=== PATIENT | female | born 1995 | race Caucasian/White ===

== ENCOUNTER 2020-01-22 10:24 | Outpatient (CLI) | payer OTHER, SELFPAY ==
--- NOTE | ~2020-01-22 | US_ITS ---
EXAMINATION: US OB <=14 wk fetus w TV DATE: 01/22/2020 13:11 INDICATION: First trimester dating TECHNIQUE: Real-time pelvic transabdominal and transvaginal ultrasound was performed. COMPARISON: None. FINDINGS: There is a single intrauterine . The placenta is anterior. heart motion is i dentified measuring 145 beats per minute (bpm) by M-mode Doppler. The crown rump length measure s 9.7 cm , which correlates with an estimated gestational age of 15 weeks and 4 day(s) (+/-) 10 day(s ). The right ovary measures 2.3 x 1.0 x 2.5 cm. The left ovary measures 1.3 x 2.0 x 1.2 cm. There is nor mal vascular flow in the ovaries. There is no free fluid in the pelvis. IMPRESSION: 1. Live intrauterine with an estimated gestational age of 15 weeks and 4 day(s) (+/-) 10 da y(s) and an estimated delivery date of 07/11/2020. Reviewed, dictated and finalized at location A. IMPRESSION: 1. Live intrauterine with an estimated gestational age of 15 weeks an d 4 day(s) (+/-) 10 day(s) and an estimated delivery date of 07/11/2020.
== END 2020-01-22 10:25 | disposition home or self-care (01) ==
PROVIDERS: PCP Internal Medicine; Visit Provider Obstetrics & Gynecology
DX: Z34.91 Encounter for supervision of normal pregnancy, unspecified, first trimester (principal); Z3A.15 15 weeks gestation of pregnancy
CPT/HCPCS: 76801; 76817

== ENCOUNTER 2020-06-18 09:00 | Observation (INO) | payer OTHER, SELFPAY ==
--- NOTE | ~2020-06-18 | US_ITS ---
EXAMINATION: US OB limited w BPP EXAM DATE: 06/18/2020 10:44 INDICATION: Small for gestational age. decelerations. 3rd trimester. TECHNIQUE: Pelvic obstetrical transabdominal sonogram was performed by a technologist. There are mu ltiple grayscale and Doppler images available for interpretation. Comparison is made to prior examina tion from 01/22/2020. FINDINGS: There is a single fetus identified in vertex presentation with a heart rate of 155 beats pe r minute. The placenta is located in the anterior position. There is no sonographic evidence of retr oplacental hemorrhage identified. The amniotic fluid index is 15.0 centimeters, which is normal. BIOPHYSICAL PROFILE (performed by the technologist) breathing (30 sec sustained breathing in 30 minutes): 2 out of 2 movement (3 gross body movements in 30 minutes): 2 out of 2 tone (one episode of hnsmtjo-giktvrxfd-kfdyohy limb movement): 2 out of 2 Amniotic fluid pocket (2 cm): 2 out of 2 Total score: 8 out of 8 IMPRESSION: 1. Single fetus with heart rate of 155 bpm. 2. Normal biophysical profile score of 8 out of 8. Reviewed, dictated and finalized at location B. [employer]
--- NOTE | 2020-06-18 09:30 | OBADM ---
This patient, Rosaura Bradley, admitted to the OB room Labor/Delivery/Recovery 118 for observation. Patient/family oriented to hospital policies and general routines including ID bracelet, bed and alarms, visiting hours, pain management, procedures, bathroom and other care routines, personal items, smoking policy, room service/diet, and visiting hours. Patient/Family are encouraged to report perceived risks to care and to ask questions if they do not understand what they are told or what they should do.
--- NOTE | 2020-06-18 12:18 | PC.NURSE ---
Dr Serrano notified about tracing, reviewed in office and want to cont monitoring at this time.
--- NOTE | 2020-07-05 11:45 | PM.OBTRLD ---
OB - Triage/Final Diagnosis Final Diagnosis (1) heart deceleration: Status: Acute
--- NOTE | 2020-07-16 10:08 | PM.OBTRLD ---
OB - Triage/Final Diagnosis Visit Information Date of evaluation: 06/22/20 Reason for evaluation: other Comments/Additional reasons for admission: decelerations.
== END 2020-06-18 14:45 | disposition home or self-care (01) ==
LOC: ANHOBOP 13:10 → ANHLDR 13:10
PROVIDERS: Admitting Provider Obstetrics & Gynecology; PCP Internal Medicine; Visit Provider Obstetrics & Gynecology
DX: O36.8330 Maternal care for abnormalities of the fetal heart rate or rhythm, third trimester, not applicable or unspecified (principal); Z3A.36 36 weeks gestation of pregnancy
CPT/HCPCS: 76815; 76819; G0378; G0379

== ENCOUNTER 2020-06-20 07:28 | Outpatient (RCR) | payer OTHER, SELFPAY ==
[2020-04-27] MEDS: RHO(D) IMMUNE GLOBULIN 300 MCG SYRINGE IM (08:05)
--- NOTE | ~2020-06-20 | US_ITS ---
EXAMINATION: US OB BPP wo non-stress EXAM DATE: 06/20/2020 09:10 INDICATION: Small for gestational age. 3rd trimester. TECHNIQUE: Pelvic obstetrical transabdominal sonogram was performed by a technologist. There are mu ltiple grayscale and Doppler images available for interpretation. Comparison is made to prior examina tion from 06/18/2020. FINDINGS: There is a single fetus identified in vertex presentation with a heart rate of 152 beats pe r minute. The placenta is located in the anterior position. There is no sonographic evidence of retr oplacental hemorrhage identified. There is subjectively expected amount of amniotic fluid. BIOPHYSICAL PROFILE (performed by the technologist) breathing (30 sec sustained breathing in 30 minutes): 2 out of 2 movement (3 gross body movements in 30 minutes): 2 out of 2 tone (one episode of obudyvh-wpriafztt-nxsxmlk limb movement): 2 out of 2 Amniotic fluid pocket (2 cm): 2 out of 2 Total score: 8 out of 8 IMPRESSION: 1. Single fetus with heart rate of 152 bpm. 2. Normal biophysical profile score of 8 out of 8. Reviewed, dictated and finalized at location B. 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
== END 2020-06-20 11:30 | disposition home or self-care (01) ==
LOC: ANHOBOP 07:28
PROVIDERS: PCP Internal Medicine; Visit Provider Obstetrics & Gynecology
DX: Z29.13 Encounter for prophylactic Rho(D) immune globulin (principal); O36.0990 Maternal care for other rhesus isoimmunization, unspecified trimester, not applicable or unspecified; Z3A.00 Weeks of gestation of pregnancy not specified
CPT/HCPCS: 36415; 59025; 76819; 85461; 90384; 96372; J2790

== ENCOUNTER 2020-06-22 10:23 | Outpatient (RCR) | payer OTHER, SELFPAY ==
--- NOTE | ~2020-06-22 | US_ITS ---
US OB limited DATE: 06/22/2020 11:07 INDICATION: Small for gestational age; determine RAVEN TECHNIQUE: Real-time imaging and Doppler analysis COMPARISON: 06/20/2020 obstetrical ultrasound with biophysical profile FINDINGS: Live cooley intrauterine gestation, fetus in vertex presentation. The placenta is anteri or. heart rate of 127 bpm. Amniotic fluid index measures 13.6 cm, normal. (5th percentile RAVEN: 7.5 cm; 95th percentile RAVEN: 24.4 cm.) IMPRESSION: Normal amniotic fluid index of 13.6 cm Reviewed, dictated and finalized at Location A. Reviewed, dictated and finalized at location A. 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
[2020-06-22 10:55] VITALS: BP 121/79; PULSE 103
--- NOTE | 2020-06-22 11:35 | PC.NURSE ---
1134- Spoke with Dr. Day, RAVEN 13.6, has appointment scheduled for next week. May be dc to home.
== END 2020-07-02 07:54 | disposition home or self-care (01) ==
LOC: ANHOBOP 10:23
PROVIDERS: PCP Internal Medicine; Visit Provider Obstetrics & Gynecology
DX: O36.5930 Maternal care for other known or suspected poor fetal growth, third trimester, not applicable or unspecified (principal); Z3A.37 37 weeks gestation of pregnancy
CPT/HCPCS: 59025; 76815

== ENCOUNTER 2020-06-28 00:14 | Inpatient (IN) | payer OTHER, SELFPAY ==
[2020-06-28] VITALS (57 sets, daily range): BP systolic 107–146; BP diastolic 62–96; PULSE 85–142; TEMP 36.3–36.7; O2SAT 97–100; BMI 28.2
--- NOTE | 2020-06-28 00:14 | LDADM ---
This patient, Rosaura Bradley, was admitted to Labor/Delivery/Recovery 104 on 06/28/20 at 00:14. Plans for labor, pain management and were discussed with patient. Patient/family oriented to hospital policies and general routines including ID bracelet, bed and alarms, visiting hours, pain management, procedures, bathroom and other care routines, personal items, smoking policy, room service/diet and guest tray routines, security routines, and visiting hours. Patient/Family are encouraged to report perceived risks to care and to ask questions if they do not understand what they are told or what they should do. See OBIX for further documentation.
[2020-06-28 00:52] LABS: Basophils Percent Auto 0.3 % (0.2-1.2); Eosinophils Absolute Auto 0.1 K/mm3 (0-0.3); Eosinophils Percent Auto 0.8 % (0-4.4); Hematocrit 33.6 % (37.0-47.0); Hemoglobin 11.7 g/dL (12.0-15.0); Immature Granulocyte Absolute 0.08 K/mm3 (0.00-0.031); Immature Granulocyte Percent A 0.6 % (0-0.5); Lymphocytes Absolute Auto 2.53 K/mm3 (0.9-3.2); Lymphocytes Percent Auto 19.1 % (18.3-44.2); Mean Corpuscular HGB Conc 34.8 g/dl (32-36); Mean Corpuscular Hemoglobin 29.9 pg (26-34); Mean Corpuscular Volume 85.9 fl (80-100); Mean Platelet Volume 9.8 fl (7.4-10.4); Monocytes Absolute Auto 0.9 K/mm3 (0.1-0.6); Neutrophils Absolute Auto 9.6 K/mm3 (1.3-6.7); Neutrophils Percent Auto 72.2 % (45.5-73.1); Platelet Count Result 268 k/mm3 (150-375); Red Blood Count 3.91 M/mm3 (4.2-5.4); Red Cell Distribution Width 13.8 % (11.5-14.5); White Blood Count 13.2 K/mm3 (4.5-10.0)
[2020-06-28] MEDS: DINOPROSTONE 10 MG VAG INSERT VAGINAL (01:30)
--- NOTE | 2020-06-28 06:57 | WPDANESEPP ---
Anes - Eval Pre Procedure Procedure: Labor epidural Date/Time: 06/28/20 06:57 Surgeon: Maggie Preop Diagnosis: pain during labor Pre Op Diagnosis: IOL Patient Data Age: 24 Gender: F Height: 1.57 m Weight: 70 kg Last Vital Signs Temp 36.4 C 06/28/20 03:42 Pulse 92 06/28/20 06:00 BP 127/76 06/28/20 06:00 Pulse Ox 99 06/28/20 01:23 Allergies Allergy/AdvReac Type Severity Reaction Status Date / Time Penicillins Allergy Unknown Verified 06/27/20 09:03 Home Medications Medication Instructions Recorded Confirmed Type vitamins no.85-iron 10 1 cap PO DAILY #30 cap 12/15/19 06/28/20 Rx mg-folate no.1 1 mg-dha 200 mg capsule ferrous sulfate 325 mg (65 mg 325 mg PO DAILY #30 tablet 06/06/20 06/28/20 Rx iron) tablet Laboratory Tests 06/28/20 06/28/20 06/28/20 00:45 00:45 01:28 WBC 13.2 K/mm3 H K/mm3 (4.5-10.0) RBC 3.91 M/mm3 L M/mm3 (4.2-5.4) Hgb 11.7 g/dL L g/dL (12.0-15.0) Hct 33.6 % L % (37.0-47.0) MCV 85.9 fl fl (80-100) MCH 29.9 pg pg (26-34) MCHC 34.8 g/dl g/dl (32-36) RDW 13.8 % % (11.5-14.5) Plt Count 268 k/mm3 k/mm3 (150-375) MPV 9.8 fl fl (7.4-10.4) Immature Gran % (Auto) 0.6 % H % (0-0.5) Neut % (Auto) 72.2 % % (45.5-73.1) Lymph % (Auto) 19.1 % % (18.3-44.2) [place] % (Auto) 7.0 % % (2.6-8.5) Eos % (Auto) 0.8 % % (0-4.4) Baso % (Auto) 0.3 % % (0.2-1.2) Lymph # (Auto) 2.53 K/mm3 K/mm3 (0.9-3.2) [place] # (Auto) 0.9 K/mm3 H K/mm3 (0.1-0.6) Eos # (Auto) 0.1 K/mm3 K/mm3 (0-0.3) Baso # (Auto) 0.0 K/mm3 K/mm3 (0.0-0.1) Abs Immat Gran (auto) 0.08 K/mm3 H K/mm3 (0.00-0.031) Absolute Neuts (auto) 9.6 K/mm3 H K/mm3 (1.3-6.7) Absolute Nucleated RBC 0.0 K/mm3 K/mm3 (0.0-0.012) Nucleated RBC % 0.0 % % (0.0-0.2) RPR Pending Blood Type A Negative Antibody Screen Positive Antibody Identification Passive Due to RH Imm Glob Antigen Identification Cancelled JIMMIE, IgG Interpret Not Performed JIMMIE, Poly Interpret Negative JIMMIE, Complement Interp Not Performed Patient hx anesthesia problems: none Family hx anesthesia problems: none PMFSH Surgical History Surgical History History of appendectomy Family History Family History Grandparent Diabetes mellitus Breast cancer Social History Social History Years smoked: 4 Smoking status: Never smoker Alcohol intake: never Substance use: never Spiritual care concerns: No Exam Day of Procedure 06/28/20 06:57
[2020-06-28 07:46] LABS: Rapid Plasma Reagin Non-Reactive (NonReactive)
[2020-06-28] MEDS: LACTATED RINGERS 1,000 ML 125 ML IV CONT ×2 (14:32→17:28)
[2020-06-28] MEDS: TERBUTALINE SULFATE 1 MG/ML VIAL (14:34)
--- NOTE | 2020-06-28 16:40 | PM.IMHP ---
H&P: HPI History of Present Illness Date/Time: 06/28/20 16:40 Chief complaint: IOL Narrative: Rosaura Bradley is a 24 year old female at 38 weeks by an EDC of 07/11/20 established by a 15 week ultrasound which was not consistent with her LMP. PNC significant for IUGR. She has been followed with serial ultrasounds and surveillance. The surveillance has been reassuring. She did have an episode of spontaneous variables on tracing and reassuring prolonged monitoring. Her last ultrasound showed an EFW of 3% which was 5% two weeks prior. She was recommended by [facility] for induction of labor between 38 and 39 weeks. Discussed risk benefits of induction versus expectant management. 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 FOC did not get lab tested. She also has anemia of and has been on iron supplementation along with PNV. Labs reviewed. GBS neg. Review of Systems Review of Systems: All systems reviewed & are unremarkable except as noted in HPI and below Constitutional: Constitutional: Reports no additional constitutional complaints and Denies headache(s) Eyes: Eyes: Denies spots in vision ENT: Reports system reviewed and no additional complaints, except as documented and Denies headache(s) Cardiovascular: Cardiovascular: Denies chest pain and Denies dyspnea Respiratory: Respiratory: Denies dyspnea Gastrointestinal: Gastrointestinal: Reports no additional gastrointestinal complaints Genitourinary: Genitourinary: Reports amenorrhea Musculoskeletal: Musculoskeletal: Reports no additional musculoskeletal complaints Integumentary/Breasts: Skin/Breast: Denies breast mass and Denies rash Neurologic: Denies headache(s) Psychiatric: Psychiatric: Reports no additional psychiatric complaints [facility] Surgical History Surgical History History of appendectomy Family History Family History Grandparent Diabetes mellitus Breast cancer Social History Social History Years smoked: 4 Smoking status: Never smoker Alcohol intake: never Substance use: never Spiritual care concerns: No Meds Home Medications and Allergies Home Medications Medication Instructions Recorded Confirmed Type vitamins no.85-iron 10 1 cap PO DAILY #30 cap 12/15/19 06/28/20 Rx mg-folate no.1 1 mg-dha 200 mg capsule ferrous sulfate 325 mg (65 mg 325 mg PO DAILY #30 tablet 06/06/20 06/28/20 Rx iron) tablet Allergies Allergy/AdvReac Type Severity Reaction Status Date / Time Penicillins Allergy Unknown Verified 06/27/20 09:03 Vital Signs Vital Signs - 24 hr 06/28/20 00:44 06/28/20 00:49 06/28/20 00:54 Temperature Pulse Rate Blood Pressure Pulse Oximetry 97 97 97 06/28/20 00:59 06/28/20 01:04 06/28/20 01:08 Temperature 97.9 F Pulse Rate Blood Pressure Pulse Oximetry 97 99 99 06/28/20 01:12 06/28/20 01:13 06/28/20 01:15 Temperature Pulse Rate 129 H 113 H Blood Pressure 129/94 H 130/88 Pulse Oximetry 98 06/28/20 01:18 06/28/20 01:23 06/28/20 01:30 Temperature Pulse Rate 104 H Blood Pressure 124/92 H Pulse Oximetry 99 99 06/28/20 01:45 06/28/20 02:00 06/28/20 02:15 Temperature Pulse Rate 99 98 90 Blood Pressure 125/90 128/86 132/83 Pulse Oximetry 06/28/20 02:30 06/28/20 02:45 06/28/20 03:00 Temperature Pulse Rate 90 95 92 Blood Pressure 133/79 122/79 134/83 Pulse Oximetry 06/28/20 03:15 06/28/20 03:30 06/28/20 03:42 Temperature 97.6 F Pulse Rate 90 96 Blood Pressure 130/83 140/82 Pulse Oximetry 06/28/20 03:45 06/28/20 04:00 06/28/20 04:15 Temperature Pulse Rate 102 H 100 85 Blood Pressure 116/69 111/65 111/71 Pulse Oximetry 06/28/20 04:30 06/28/20 04:45 06/28/20 05:00 Temperature Pulse Rate 86 90 86 Blood Pressure 1
--- NOTE | 2020-06-28 16:58 | P.PNOB_ITS ---
OB - PN: Subj Subjective Date/time seen: 06/28/20 o830 FHT 140 Cat 1. Cervix closed. Continue cervidil. OB - PN: Obj Data Labs CBC & Chem 7: 06/28/20 00:45 Labs: Laboratory Results - last 24 hr 06/28/20 06/28/20 06/28/20 00:45 01:27 01:28 WBC 13.2 H RBC 3.91 L Hgb 11.7 L Hct 33.6 L MCV 85.9 MCH 29.9 MCHC 34.8 RDW 13.8 Plt Count 268 MPV 9.8 Immature Gran % (Auto) 0.6 H Neut % (Auto) 72.2 Lymph % (Auto) 19.1 [place] % (Auto) 7.0 Eos % (Auto) 0.8 Baso % (Auto) 0.3 Lymph # (Auto) 2.53 [place] # (Auto) 0.9 H Eos # (Auto) 0.1 Baso # (Auto) 0.0 Abs Immat Gran (auto) 0.08 H Absolute Neuts (auto) 9.6 H Absolute Nucleated RBC 0.0 Nucleated RBC % 0.0 RPR Non-reactive Blood Type A Negative Antibody Screen Positive Antibody Identification Passive Due to RH Imm Glob Antigen Identification Cancelled JIMMIE, IgG Interpret Not Performed JIMMIE, Poly Interpret Negative JIMMIE, Complement Interp Not Performed OB - PN A/P Time Spent With Patient Time: Total time spent is greater than 50% in coordination of care (as documented) at patient's floor/unit and/or counseling patient:
--- NOTE | 2020-06-28 16:58 | P.PNOB_ITS ---
OB - PN: Subj Subjective Date/time seen: 06/28/20 16:58 Tracing reviewed. Tracing with an episode of tachysystole and bradycardia resolved. Terbutaline given. Prior to that Cat 1. Cervidil was taken prior to the episode of tachysystole. Contraction mild irreg, FHT 150 cat 1. Exam /-3, Attempted intracervical Bautista placement and patient did not tolerate. Will start back on Pitocin. OB - PN: Obj Data Labs CBC & Chem 7: 06/28/20 00:45 Labs: Laboratory Results - last 24 hr 06/28/20 06/28/20 06/28/20 00:45 01:27 01:28 WBC 13.2 H RBC 3.91 L Hgb 11.7 L Hct 33.6 L MCV 85.9 MCH 29.9 MCHC 34.8 RDW 13.8 Plt Count 268 MPV 9.8 Immature Gran % (Auto) 0.6 H Neut % (Auto) 72.2 Lymph % (Auto) 19.1 [place] % (Auto) 7.0 Eos % (Auto) 0.8 Baso % (Auto) 0.3 Lymph # (Auto) 2.53 [place] # (Auto) 0.9 H Eos # (Auto) 0.1 Baso # (Auto) 0.0 Abs Immat Gran (auto) 0.08 H Absolute Neuts (auto) 9.6 H Absolute Nucleated RBC 0.0 Nucleated RBC % 0.0 RPR Non-reactive Blood Type A Negative Antibody Screen Positive Antibody Identification Passive Due to RH Imm Glob Antigen Identification Cancelled JIMMIE, IgG Interpret Not Performed JIMMIE, Poly Interpret Negative JIMMIE, Complement Interp Not Performed OB - PN A/P Time Spent With Patient Time: Total time spent is greater than 50% in coordination of care (as documented) at patient's floor/unit and/or counseling patient:
[2020-06-28] MEDS: OXYTOCIN 30 UNITS/NS 500 ML 30 UNITS/500 ML BAG IV CONT (17:28)
[2020-06-29] VITALS (70 sets, daily range): BP systolic 62–223; BP diastolic 29–190; PULSE 85–241; RESP 16–18; TEMP 36.4–37.2; O2SAT 99
[2020-06-29] MEDS: LACTATED RINGERS 1,000 ML 125 ML IV CONT ×2 (04:45→15:32)
--- NOTE | 2020-06-29 09:37 | PM.OBPNVD ---
OB - PN: Subj Subjective Date/time seen: 06/29/20 09:37 FHT 145 Cat 1 occasional decel episode non repetitive. cervix /-2 AROM clear. Continue Pitocin. OB - PN: Obj Data Labs CBC & Chem 7: 06/28/20 00:45 OB - PN A/P Time Spent With Patient Time: Total time spent is greater than 50% in coordination of care (as documented) at patient's floor/unit and/or counseling patient:
[2020-06-29] MEDS: fentaNYL CITRATE INJ (*CRX) 100 MCG/2 ML VIAL IV PUSH (12:00)
[2020-06-29] MEDS: OXYTOCIN 30 UNITS/NS 500 ML 30 UNITS/500 ML BAG 999 UNITS IV CONT (16:37)
--- NOTE | 2020-06-29 16:41 | P.PCNOB_ITS ---
OB - Delivery Note Procedure Delivery date: 06/29/20 events: Labor Induction (IUGR) Intrapartal events: Prolonged Latent Phase Induction method: AROM, per pitocin protocol and per cervidil protocol Delivery monitor: external FHT and internal uterine Route of delivery: Episiotomy description: None Laceration Description: Periurethral (left) Delivery repair: vicryl (3-0) Specimen: Yes Quantitative Blood Loss: 112 Anesthesia type: Local (1% lidocaine) Disposition: floor [place] Baby Date of : 06/29/20 Time of : 16:21 Weeks of gestation at delivery: 38 gender: Female Weight (pounds): 5 Weight (ounces): 12 presentation: vertex position: Left Occiput Anterior Placenta delivery description: Spontaneous score one minute: 9 score five minutes: 9
[2020-06-29] MEDS: OXYTOCIN 30 UNITS/NS 500 ML 30 UNITS/500 ML BAG 125 UNITS IV CONT (17:10)
[2020-06-29] MEDS: WITCH HAZEL 40 PADS 1 PAD TOPICAL (18:44)
[2020-06-29] MEDS: BENZOCAINE 20% AER SPR (*SP) 56 GM CAN 1 SPRAY TOPICAL (18:44)
--- NOTE | 2020-06-29 19:07 | PC.NURSE ---
Patient transferred to post room #281 via wheel chair. Support person present. Oriented to unit, room, information board, rooming in, admission packet and security measures. Patient verbalizes understanding.
[2020-06-29] MEDS: IBUPROFEN 600 MG TABLET PO (21:47)
[2020-06-30 05:53] LABS: Hematocrit 32.6 % (37.0-47.0); Hemoglobin 11.1 g/dL (12.0-15.0)
[2020-06-30] MEDS: IBUPROFEN 600 MG TABLET PO ×2 (09:21→16:20)
[2020-06-30] MEDS: MULTIVIT/MIN/PREN/FOL AC/IRON TABLET 1 TAB PO (09:22)
[2020-06-30] MEDS: DOCUSATE SODIUM 100 MG CAPSULE PO (09:22)
[2020-06-30 09:30] VITALS: BP 114/76; PULSE 89; RESP 16; TEMP 36.9
--- NOTE | 2020-06-30 12:29 | P.PNOB_ITS ---
OB - PN: Subj Subjective Date/time seen: 06/30/20 12:29 Patient comments: no complaints, pain well controlled and other (Lochia similar to menses) [place] baby status: doing well OB - PN: Obj Data Labs CBC & Chem 7: 06/30/20 05:44 Labs: Laboratory Results - last 24 hr 06/30/20 06/30/20 05:44 05:44 Hgb 11.1 L Hct 32.6 L Blood Type A Negative Antibody Screen TNP Screen Negative Baby's Blood Type A pos Baby's JIMMIE Negative Doses of RhIg Required 1 OB - PN A/P Plan day: 1 (s/p vaginal delivery, doing well) Plan: routine care Time Spent With Patient Time: Total time spent is greater than 50% in coordination of care (as documented) at patient's floor/unit and/or counseling patient: Exam Const: General: no acute distress GI: Inspection: other (Fundus firm and nontender at umbilicus) GI Palp: Yes Soft to palpation and No Tenderness to palpation present (GI) Extrem: General: no edema
--- NOTE | 2020-06-30 12:29 | PM.OBDSVD ---
DS: Admitting Diagnosis Admitting Diagnosis Admitting Diagnosis: IOL DS: Discharge Diagnosis Discharge Diagnosis (1) Intrauterine growth restriction (IUGR) affecting care of mother, third trimester, single gestation: Code(s): O36.5930 - Maternal care for other known or suspected poor growth, third trimester, not applicable or unspecified Status: Acute OB - DS: Summary OB Procedures : None OB Procedures Intrapartum: Spontaneous Vag Delivery OB Procedures: : None Peripartum Data Infant Delivery Method: Natural Vaginal Laceration Description: Periurethral complications: none Status at Discharge Functional status at discharge: independent ambulation Overall status at discharge: patient is progressing back to baseline Time Spent with Patient Time attestation: Total time spent providing and/or coordinating discharge services: Time spent: Less than 30 minutes DS: Data Data Completed and Pending Pending studies at discharge: Pending at discharge 06/29/20 16:26 Surgical [PTH] Routine Labs on day of discharge: Labs from last 24 hours 06/30/20 06/30/20 05:44 05:44 Hgb 11.1 L Hct 32.6 L Blood Type A Negative Antibody Screen TNP Screen Negative Baby's Blood Type A pos Baby's JIMMIE Negative Doses of RhIg Required 1 Discharge Plan Discharge Attending physician on discharge: Silvio Serrano Discharging Clinician: Devika May Anticipated Discharge Date/Time: 07/01/20 11:00 Patient Disposition: Home, Self-Care Activity: may shower and pelvic rest Diet: regular Discharge Instructions: Education: Mom and Baby Guide Given to: Mother Follow-Up: Call your delivering provider's office for an appointment to be seen in: 4 Weeks Mom and baby should come to the [facility] for the follow-up appointment. Appointment Date/Time: July 02, 2020 at 8:00 am What to expect at your follow-up visit: Physical Assessment Call [phone] if you are unable to keep your appointment time. BREAST CARE: * Wear a snug supportive bra. * For engorgement discomfort: Breast Feeding: * Apply warm moist washcloths * Express milk as needed to relieve engorgement * Wear loose clothing * For sore nipples: * Identify correct latch-on * Apply warm moist washcloths before and after nursing * Air dry nipples after nursing * May apply Lansinoh cream to nipples PERINEAL CARE: * Until bleeding stops, use your sacha bottle after urinating * Change your pad frequently throughout the day * You may take sitz baths several times a day (fill your bathtub with warm water and soak for 20 minutes.) Do NOT bathe in the water * No tub baths until seen by your physician - You may shower ACTIVITY: * Rest as much as possible. * Do not exercise or lift anything heavier than your baby (such as laundry or other children.) * Avoid stairs or driving as much as possible. * Do not put anything into the vagina. No douching, tampons, or sexual activity until seen by physician. NOTIFY PHYSICIAN IF YOU HAVE ANY QUESTIONS OR IF ANY OF THE FOLLOWING SYMPTOMS OCCUR: * If your stitches become red, swollen, or more painful than what you have experienced in the hospital. * If your vaginal bleeding becomes foul smelling. * If your vaginal bleeding becomes more heavy than a period or if your bleeding changes from pink to bright red. However, you may pass an occasional walnut-sized clot once or twice for the first week . * If you experience a sharp, shooting pain in you calves. * If you discover a hard, reddened area on your breast or if you experience flu-like symptoms. DIET: * Eat regular, well-balanced meals. * Drink plenty of fluids daily. If , drink to thirst. Patient Instructions: Antibiotic Form Stand Alone Forms: General Discharge Information Follow-up/Referrals: St
--- NOTE | 2020-06-30 13:16 | WPDANLDPN2 ---
Anes-Prog Note L&D Date/Time: 06/30/20 13:16 Comfortable throughout: labor and delivery Neuraxial method: epidural Epidural/Spinal procedure site: clean & non-tender Neuro status: Neuro function grossly intact. Cardiovascular status: normal Respiratory status: normal Airway patency: baseline Mental status: baseline Post-Op hydration status: normal Vital Signs: Last Vital Signs Temp 36.9 C 06/30/20 09:30 Pulse 89 06/30/20 09:30 Resp 16 06/30/20 09:30 BP 114/76 06/30/20 09:30 Pulse Ox 99 06/29/20 19:35 Pain score (VAS): 0 I/O: Intake & Output 06/29/20 06/30/20 06/30/20 23:59 07:59 15:59 Intake Total 1670 Output Total 85 Balance 1585 Post-procedural complaints: none Patient feedback: Patient satisfied with anesthetic care.
[2020-06-30] MEDS: TETANUS,DIPHTHERIA,AC PERTUSSIS ADULT (0.5 ML) BOOSTRIX IM (17:10)
[2020-06-30] MEDS: RHO(D) IMMUNE GLOBULIN 300 MCG SYRINGE IM (17:14)
[2020-06-30 18:22] VITALS: BP 118/81; RESP 16; TEMP 36.9
[2020-07-01 08:10] VITALS: BP 113/79; PULSE 97; RESP 18; TEMP 36.6
[2020-07-01] MEDS: MEASLES,MUMPS,RUBELLA VACCINE 0.5 ML VIAL (08:54)
[2020-07-01] MEDS: MULTIVIT/MIN/PREN/FOL AC/IRON TABLET 1 TAB PO (08:54)
--- NOTE | 2020-07-01 09:09 | PM.OBPNVD ---
OB - PN: Subj Subjective Date/time seen: 07/01/20 09:09 Patient comments: no complaints, pain well controlled and other (Lochia similar to menses) [place] baby status: doing well OB - PN: Obj Data Labs CBC & Chem 7: 06/30/20 05:44 Labs: Laboratory Results - last 24 hr 06/30/20 05:44 Blood Type A Negative Antibody Screen TNP Screen Negative Baby's Blood Type A pos Baby's JIMMIE Negative Doses of RhIg Required 1 OB - PN A/P Plan day: 2 (s/p vaginal delivery, doing well) Plan: routine care, discharge home and other (Follow up in office in 4 weeks) Time Spent With Patient Time: Total time spent is greater than 50% in coordination of care (as documented) at patient's floor/unit and/or counseling patient: Exam Const: General: no acute distress GI: Inspection: other (Fundus firm and nontender below umbilicus) GI Palp: Yes Soft to palpation and No Tenderness to palpation present (GI) Extrem: General: no edema
[2020-07-02 07:52] VITALS: BP 126/84; PULSE 100; RESP 20; TEMP 37.3; O2SAT 99
== END 2020-07-01 11:52 | disposition home or self-care (01) | DRG 560 ==
LOC: ANHLDR 00:19 → ANHOB2 06-30 12:32 → ANHLDR 07-04 11:20 → ANHOB2 07-04 11:20
PROVIDERS: Admitting Provider Obstetrics & Gynecology; PCP Internal Medicine; Visit Provider Obstetrics & Gynecology
DX: O36.5930 Maternal care for other known or suspected poor fetal growth, third trimester, not applicable or unspecified (principal); O71.82 Other specified trauma to perineum and vulva; O76 Abnormality in fetal heart rate and rhythm complicating labor and delivery; O99.02 Anemia complicating childbirth; D64.9 Anemia, unspecified; O99.834 Other infection carrier state complicating childbirth; Z3A.38 38 weeks gestation of pregnancy; Z37.0 Single live birth; Z22.8 Carrier of other infectious diseases; Z23 Encounter for immunization
CPT/HCPCS: 36415; 85014; 85018; 85025; 85461; 86592; 86850; 86880; 86900; 86901; 86902; 88307; 90384; 90471; 90653; 90710; 90715; A9270; G0008; J2590; J2790; J2795; J3010; J3105; J7120

== ENCOUNTER 2024-07-18 23:46 | Emergency (ER) | payer OTHER, SELFPAY ==
[2024-07-18 23:48] VITALS: BP 124/79; PULSE 121; RESP 18; TEMP 36.5; O2SAT 98
--- NOTE | 2024-07-19 02:13 | PC.NURSE ---
Pt states she has a kid at home that she needs to get back to. Pt states she is leaving. Pt left without being seen by provider.
--- OUTSIDE RECORDS SUMMARY | 2024-07-26 02:27 | XMS_ITS | Encounter Summary ---
Author Organization [facility] Address [address] [place] [address] Care Team Providers Care Drafter Heating And Ventilating Name Role Phone Unavailable Primary Care Provider Unavailabl e Reason for Referral * Radiology Services (Routine) - Closed Specialty Diagnoses / Procedures Referred By Contac t Referred To Contact Diagnoses Bycxx-zfo-fibqr fetus, third trimester Procedures US MONITORING NST US MONITORING NST Lazaro Maguire MD [address] [address] Referral ID Status Reason Start Date Expiration Date V isits Requested Visits Authorized [id number] Closed [facility] CTS 05/17/2020 06/17/2021 1 1 Reason for Visit * Radiology Services (Routine) - Closed Specialty Diagnoses / Procedures Referred By Contac t Referred To Contact Diagnoses Alrwu-myt-ilfnd fetus, third trimester Procedures US MONITORING NST US MONITORING NST Lazaro Maguire MD [address] [address] Referral ID Status Reason Start Date Expiration Date V isits Requested Visits Authorized [id number] Closed [facility] CTS 05/17/2020 06/17/2021 1 1 Encounter Details Date Type Department Care Team (Latest Contact Info) Description 05/24/2020 9:15 AM CDT - 05/24/2020 11:59 PM CDT Hospital Encounter [facility] Maternal and Health [facility] [address] [place] [address] Lazaro Maguire MD [address] [facility] [address] [place] [address] Discharge Disposition: Home or Self Care Social History Tobacco Use Types Packs/Day Years Used Date Smoking Tobacco: Never Assessed Sex and Gender Information Value Date Recorded Sex Assigned at Not on file Gender Identity Not on file Sexual Orientation Not on file COVID-19 Exposure Response Date Recorded In the last month, have you been in contact with someone who was confirmed or suspected to have Coronavirus / COVID-19? No / Unsure 05/24/2020 9:29 AM CDT documented as of this encounter Plan of Treatment Not on file documented as of this encounter Procedures Procedure Name Priority Date/Time Associated Diagnosis Comments US MONITORING NST Routine 05/24/2020 11:46 AM CDT Kvrnf-idr-rcbkf fetus, third trimester documented in this encounter Results * US MONITORING NST (05/24/2020 11:46 AM CDT) Anatomical Region Laterality Modality Ultrasound 05/24/2020 9:32 AM CDT Impressions 05/24/2020 11:39 AM CDT IMPRESSION ----- Here today for testing along with Doppler study secondary to suspected SGA/IUGR. Reassuring status with reactive NST with normal RAVEN 17.9 cm. The umbilical artery doppler studies were normal. Narrative 05/24/2020 11:[address] [facility] NST ----- Pat. Name: ROSAURA BRADLEY Study Date: 05/24/2020 9:32am Pat. NO: [id number] Referring ??MD: LAZARO MAGUIRE MD Site: [facility] [employer] Grader: : 1995 Age: 24 ----- INDICATION ----- Insufficient Care Small for Dates CODING ----- Diagnosis ? O09.33: Supervision of with insufficient care ?O36.5930: Maternal care for other known or suspected poor growth Unspecified Fetus ?Z3A.33: Weeks Gestation of Procedures ?41778: NST/ monitoring HISTORY ----- OB History ? 1. Para 0 MATERNAL ASSESSMENT ----- Physical Exam ? Weight 64 kg. BMI 25.61 kg/m?. Blood pressure 119 / 72 mmHg. Heart rate 108 bpm. METHOD ----- EFM ----- Goddard . Number of fetuses: 1. DATING ----- Cycle: regular cycle GA by stated dating 33 w + 1 d NICOLE by stated dating : 07/11/2020 Method of dating: Restore dating from previous exam Assigned: Dating performed on 03/28/2020, based on the external assessment Assigned GA 33 w + 1 d Assigned NICOLE: 07/11/2020 NON STRESS TEST ----- NST interpretation: reactive. Test duration 23 min. Baseline FHR 135 bpm. Baseline variability: moderate. Accelerations: Present. Decelerations: absent. Uterine activity: absent COMMENT ----- Nursing notes: Patient reports + movement and no bleeding, leaking or bob. Patient scheduled twice weekly. Pt to US now for BFS. FOLLOW-UP ----- As previously discussed she is to continue twice-weekly testing along with weekly Doppler studies and repeat interval growth ultrasound as previously scheduled. Based on surgical findings also determine timing of delivery. labor precautions along with kick counts. Thank you for allowing us to partake in your patient's care. Procedure Note Darryl Avilez DO - 05/24/2020 [facility] ----- Janis. Name:SIDNEY BRADLEYLorenzo Date:05/24/2020 9:32am Pat. NO: [id number] :LAZARO MAGUIRE MD Site:[facility]: :1995Age:24 ----- INDICATION ----- Insufficient Care Small for Dates CODING ----- Diagnosis O09.33: Supervision of with insufficientantenatal care O36.5930: Maternal care for other known orsuspected poor growth Unspecified Fetus Z3A.33: Weeks Gestation of Procedures 21676: NST/ monitoring HISTORY ----- OB History 1. Para 0 MATERNAL ASSESSMENT ----- Physical Exam Weight 64 kg. BMI 25.61 kg/m?. Blood posfghqe004 / 72 mmHg. Heart rate 108 bpm. METHOD ----- EFM ----- Goddard . Number of fetuses: 1. DATING ----- Cycle:regular cycle GA by stated dating 33 w + 1 d NICOLE by stated dating :07/11/2020 Method of dating:Restore dating from previous exam Assigned:Dating performed on 03/28/2020, based on the externalassessment Assigned GA33 w + 1 d Assigned NICOLE:07/11/2020 NON STRESS TEST ----- NST interpretation: reactive. Test duration 23 min. Baseline FHR 135 bpm.Baseline variability: moderate. Accelerations: Present. Decelerations: absent. Uterine activity: absent COMMENT ----- Nursing notes: Patient reports + movement and no bleeding, leakingor bob. Patient scheduled twice weekly. Pt to US now for BFS. FOLLOW-UP ----- As previously discussed she is to continue twice-weekly fetaltesting along with weekly Doppler studies and repeat interval growth ultrasound as previously scheduled. Based onsurgical findings also determine timing of delivery. labor precautions along with kick counts. Thank you for allowing us to partake in your patient's care. IMPRESSION ----- Here today for testing along with Doppler study secondaryto suspected SGA/IUGR. Reassuring status with reactive NST with normal RAVEN 17.9 cm. The umbilical artery doppler studies were normal. Lazaro Maggie MD ORDERABLES documented in this encounter Visit Diagnoses Diagnosis Nshrb-kpm-oqcny fetus, third trimester documented in this encounter
--- OUTSIDE RECORDS SUMMARY | 2024-07-26 02:27 | XMS_ITS | Encounter Summary ---
Author Organization [facility] Address [address] Attn: Epic Prelude ADT JANI EVANS SARAH [address] Care Team Providers Care Health Information Systems Technician Name Role Phone Unavailable Primary Care Provider Unavailabl e Encounter Details Date Type Department Care Team (Latest Contact Info) Description 06/18/2020 Travel Social History Tobacco Use Types Packs/Day Years [...] have Coronavirus / COVID-19? No / Unsure 06/18/2020 7:48 AM DINKEY OPERATOR SLAG documented as of this encounter Plan of Treatment Not on file documented as of this encounter Visit Diagnoses Not on filedocumented in this encounter
--- OUTSIDE RECORDS SUMMARY | 2024-07-26 02:27 | XMS_ITS | Encounter Summary ---
Author Organization [facility] Address [address] [place] [address] Care Team Providers Care Survey Researcher Name Role Phone Unavailable Primary Care Provider Unavailabl e Reason for Referral * Radiology Services (Routine) - Closed Specialty Diagnoses / Procedures Referred By Contac t Referred To Contact Diagnoses Ilgfs-kgi-zzjzq fetus, third trimester Procedures US OB LTD+UMB ART DOPPLER CHG DOPPLER UMBILICAL ARTERY CHG US, UTERUS,LIMITED, 1/> FETUSES Lazaro Maguire MD [address] [address] Referral ID Status Reason Start Date Expiration Date V isits Requested Visits Authorized [id number] Closed STL CTS 06/08/2020 09/16/2020 1 1 TRIC SWITCH TESTER Reason for Visit * Radiology Services (Routine) - Closed Specialty Diagnoses / Procedures Referred By Contac t Referred To Contact Diagnoses Emdkm-kei-wikjs fetus, third trimester Procedures US OB LTD+UMB ART DOPPLER CHG DOPPLER UMBILICAL ARTERY CHG US, UTERUS,LIMITED, 1/> FETUSES Lazaro Maguire MD [address] [address] Referral ID Status Reason Start Date Expiration Date V isits Requested Visits Authorized [id number] Closed STL CTS 06/08/2020 09/16/2020 1 1 Encounter Details Date Type Department Care Team (Latest Contact Info) Description 06/14/2020 8:32 AM ELECTRIC SWITCH TESTER - 06/14/2020 11:59 PM ELECTRIC SWITCH TESTER Hospital Encounter [facility] Maternal and [facility] [place] [facility] [address] [place] [address] Lazaro Maguire MD [address] [place] [address] [place] [address] Discharge Disposition: Home or Self [...] have Coronavirus / COVID-19? No / Unsure 06/14/2020 8:20 AM ELECTRIC SWITCH TESTER documented as of this encounter Plan of Treatment Not on file documented as of this encounter Procedures Procedure Name Priority Date/Time Associated Diagnosis Comments US OB LTD+UMB ART DOPPLER Routine 06/14/2020 9:09 AM ELECTRIC SWITCH TESTER Ugcbs-ahh-ofkmb fetus, third trimester documented in this encounter Results * US OB LTD+UMB ART DOPPLER (06/14/2020 9:09 AM ELECTRIC SWITCH TESTER) Anatomical Region Laterality Modality Pelvis Ultrasound 06/14/2020 9:04 AM ELECTRIC SWITCH TESTER Impressions 06/14/2020 9:12 AM ELECTRIC SWITCH TESTER IMPRESSION ----- 1. Goddard living fetus with a gestational age of 36w 1d, based on the reported clinical dates. 2. Umbilical (UA) Doppler finding of: S/D 2.59, which is normal for gestational age. No evidence of absent or reverse of end diastolic flow (AEDV/REDV). 3. Amniotic fluid volume is normal for gestational age at 15.2cm. 4. NST: reactive and reassuring for gestational age. Comments: I had the pleasure of seeing your patient in follow-up for the above mentioned indications. We reviewed the overall sonographic findings and the limitations associated with ultrasound evaluations Recommendations: - Continue weekly Doppler interrogation studies. - Continue surveillance as planned. Thank you for allowing us to participate in the care of this patient. Narrative 06/14/2020 9:12 AM ELECTRIC SWITCH TESTER [facility] ----- Janis. Name: ROSAURA BRADLEY Study Date: 06/14/2020 9:04am Pat. NO: [id number] Referring ??MD: LAZARO MAGUIRE MD Site: [place] Restoration Officer: Ca Frey : 1995 Age: 24 ----- INDICATION ----- Growth Restriction (IUGR) Insufficient Care CODING ----- Diagnosis ? O36.5930: Maternal care for other known or suspected poor growth Unspecified Fetus ?O09.33: Supervision of with insufficient care ?Z3A.36: Weeks Gestation of Procedures ?17543: Limited 1 or more - RAVEN, FHR, position ?37465: Umbilical Artery Doppler HISTORY ----- OB History ? 1. Para 0 MATERNAL ASSESSMENT ----- Physical Exam ? Weight 64 kg. BMI 25.61 kg/m?. METHOD ----- Transabdominal ultrasound examination ----- Goddard . Number of fetuses: 1. DATING ----- Cycle: regular cycle GA by stated dating 36 w + 1 d NICOLE by stated dating : 07/11/2020 Method of dating: Restore dating from previous exam Assigned: Dating performed on 03/28/2020, based on the external assessment Assigned GA 36 w + 1 d Assigned NICOLE: 07/11/2020 BIOMETRY ----- Other Structures Biometry: AF MVP ?5.2 ?cm ? RAVEN ? 15.2 ? cm ? 58% ? [place] FHR ? 138 ?bpm ? GENERAL EVALUATION ----- Cardiac activity present. FHR 138 bpm. movements present. Presentation cephalic. Placenta Placental site: anterior. Umbilical cord Cord vessels: 3 vessel cord. Cord insertion: placental insertion: normal. Amniotic fluid Amount of AF: normal amount. MVP 5.2 cm. RAVEN 15.2 cm. Q1 5.2 cm, Q2 3.4 cm, Q3 3.5 cm, Q4 3.1 cm. ANATOMY ----- The following structures appear normal: Heart / Thorax ?Cardiac rhythm. Abdomen ? Stomach. Bladder. DOPPLER ----- Umbilical Artery: normal. PI ?0.91 ?67% ? Twyla RI ?0.61 ?69% ? Twyla PS ?59.40 ?cm/s ? 82% ? [place] ED ?22.90 ?cm/s ? S / D ? 2.59 ?62% ? Twyla COMMENT ----- Patient's name and date of were verified by the audit machine operator prior to the exam. Procedure Note Jessica Moran MD - 06/14/2020 [facility] ----- PatShameka Name:Marissa BRADLEY Date:06/14/2020 9:04am Pat. NO: [id number] :LAZARO MAGUIRE MD [facility] :1995Age:24 ----- INDICATION ----- Growth Restriction (IUGR) Insufficient Care CODING ----- Diagnosis O36.5930: Maternal care for other known orsuspected poor growth Unspecified Fetus O09.33: Supervision of with insufficientantenatal care Z3A.36: Weeks Gestation of Procedures 12950: Limited 1 or more - RAVEN, R, position 51571: Umbilical Artery Doppler HISTORY ----- OB History 1. Para 0 MATERNAL ASSESSMENT ----- Physical Exam Weight 64 kg. BMI 25.61 kg/m?. METHOD ----- Transabdominal ultrasound examination ----- [place] . Number of fetuses: 1. DATING ----- Cycle:regular cycle GA by stated dating 36 w + 1 d NICOLE by stated dating :07/11/2020 Method of dating:Restore dating from previous exam Assigned:Dating performed on 03/28/2020, based on the externalassessment Assigned GA36 w + 1 d Assigned NICOLE:07/11/2020 BIOMETRY ----- Other Structures Biometry: AF MVP 5.2 cm RAVEN 15.2 cm58% [place] FHR 138 bpm GENERAL EVALUATION ----- Cardiac activity present. FHR 138 bpm. movements present. Presentation cephalic. Placenta Placental site: anterior. Umbilical cord Cord vessels: 3 vessel cord. Cord insertion: placentalinsertion: normal. Amniotic fluid Amount of AF: normal amount. MVP 5.2 cm. RAVEN 15.2 cm. Q15.2 cm, Q2 3.4 cm, Q3 3.5 cm, Q4 3.1 cm. ANATOMY ----- The following structures appear normal: Heart / Thorax Cardiac rhythm. Abdomen Stomach. Bladder. DOPPLER ----- Umbilical Artery: normal. PI 0.9167% Twyla RI 0.6169% Twyla PS 59.40 cm/s82% [place] ED 22.90 cm/s S / D 2.5962% Twyla COMMENT ----- Patient's name and date of were verified by the audit machine operator prior tothe exam. IMPRESSION ----- 1. Goddard living fetus with a gestational age of 36w 1d, based on thereported clinical dates. 2. Umbilical (UA) Doppler finding of: S/D 2.59, which is normal forgestational age. No evidence of absent or reverse of end diastolic flow (AEDV/REDV). 3. Amniotic fluid volume is normal for gestational age at 15.2cm. 4. NST: reactive and reassuring for gestational age. Comments: I had the pleasure of seeing your patient in follow-up for theabove mentioned indications. We reviewed the overall sonographic findings and the limitations associated with ultrasoundevaluations Recommendations: - Continue weekly Doppler interrogation studies. - Continue surveillance as planned. Thank you for allowing us to participate in the care of this patient. Lazaro Maguire MD US ORDERABLES documented in this encounter Visit Diagnoses Diagnosis Ekwkv-rin-ckcgw fetus, third trimester documented in this encounter
--- OUTSIDE RECORDS SUMMARY | 2024-07-26 02:27 | XMS_ITS | Encounter Summary ---
Author Organization [facility] Address [address] [place] [address] Care Team Providers Care Site Acquisition Specialist Name Role Phone Unavailable Primary Care Provider Unavailabl e Reason for Referral * Radiology Services (Routine) - Closed Specialty Diagnoses / Procedures Referred By Brandonac silverio Referred To Contact Diagnoses Yuoao-trg-rlsei fetus, third trimester Procedures US MONITORING Lazaro Garibay MD [address] [address] Referral ID Status Reason Start Date Expiration Date Visits Re quested Visits Authorized [id number] Closed 06/18/2020 07/19/2021 1 1 C WORKER Reason for Visit * Radiology Services (Routine) - Closed Specialty Diagnoses / Procedures Referred By Deandre sawyer Referred To Contact Diagnoses Vujzs-lyy-ctyff fetus, third trimester Procedures US MONITORING Lazaro Garibay MD [address] [address] Referral ID Status Reason Start Date Expiration Date Visits Re quested Visits Authorized [id number] Closed 06/18/2020 07/19/2021 1 1 Encounter Details Date Type Department Care Team (Latest Contact Info) Description 06/25/2020 1:15 PM MUSIC WORKER - 06/25/2020 11:59 PM MUSIC WORKER Hospital Encounter [facility] Maternal and Health [facility] [address] [place] [address] Lazaro Maguire MD [address] [address] Discharge Disposition: Home or Self Care [...] have Coronavirus / COVID-19? No / Unsure 06/25/2020 1:51 PM MUSIC WORKER documented as of this encounter Plan of Treatment Not on file documented as of this encounter Procedures Procedure Name Priority Date/Time Associated Diagnosis Comments US MONITORING NST Routine 06/25/2020 5:23 PM MUSIC WORKER Ihxeg-jcp-ijjej fetus, third trimester documented in this encounter Results * US MONITORING NST (06/25/2020 5:23 PM MUSIC WORKER) Anatomical Region Laterality Modality Ultrasound 06/25/2020 3:29 PM MUSIC WORKER Impressions 06/25/2020 5:14 PM MUSIC WORKER IMPRESSION ----- Here today for interval growth ultrasound and testing with Doppler study secondary to suspected IUGR. She had no complaints and reported good movements. Please refer to OB ultrasound dated today for details in the interval growth. The EFW is 5% and AC 18%. The amniotic fluid is normal RAVEN is 13.5 with MVP 4.1 cm. Good movements were noted. The umbilical artery Doppler studies show normal S/D ratio. Ultrasound does have its limitations in detecting all congenital anomalies. Case also discussed with Dr. Maguire concerning timing of delivery which is recommended at 38-39 weeks. Narrative 06/25/2020 5:14 PM MUSIC WORKER [facility] NST ----- Pat. Name: ROSAURA BRADLEY Study Date: 06/25/2020 3:29pm Pat. NO: [id number] Referring ??MD: LAZARO MAGUIRE MD Site: [place] Core Setter: : 1995 Age: 24 ----- INDICATION ----- Growth Restriction (IUGR) Insufficient Care CODING ----- Diagnosis ? O36.5930: Maternal care for other known or suspected poor growth Unspecified Fetus ?O09.33: Supervision of with insufficient care ?Z3A.37: Weeks Gestation of Procedures ?67084: NST/ monitoring HISTORY ----- OB History ? 1. Para 0 MATERNAL ASSESSMENT ----- Physical Exam ? Weight 68 kg. BMI 27.62 kg/m?. Blood pressure 136 / 78 mmHg. Heart rate 99 bpm. METHOD ----- EFM ----- Goddard . Number of fetuses: 1. DATING ----- Cycle: regular cycle GA by stated dating 37 w + 5 d NICOLE by stated dating : 07/11/2020 Method of dating: Restore dating from previous exam Assigned: Dating performed on 03/28/2020, based on the external assessment Assigned GA 37 w + 5 d Assigned NICOLE: 07/11/2020 NON STRESS TEST ----- NST interpretation: reactive. Test duration 30 min. Baseline FHR 120 bpm. Baseline variability: moderate. Accelerations: Present. Decelerations: absent. Uterine activity: absent COMMENT ----- Nursing notes: Patient reports + movement and no bleeding, leaking or bob. Patient scheduled twice weekly. FOLLOW-UP ----- She is to continue with twice-weekly testing along with weekly Doppler studies until delivery. Recommend delivery at 38-39 weeks. Labor precautions along with kick counts Thank you for allowing us to partake in your patient's care. Procedure Note Darryl Avilez DO - 06/25/[address] [facility] ----- Pat. Name:JOSÉ BRADLEYGali Date:06/25/2020 3:29pm Pat. NO: [id number] :LAZARO MAGUIRE MD [place]1995Age:24 ----- INDICATION ----- Growth Restriction (IUGR) Insufficient Care CODING ----- Diagnosis O36.5930: Maternal care for other known orsuspected poor growth Unspecified Fetus O09.33: Supervision of with insufficientantenatal care Z3A.37: Weeks Gestation of Procedures 42816: NST/ monitoring HISTORY ----- OB History 1. Para 0 MATERNAL ASSESSMENT ----- Physical Exam Weight 68 kg. BMI 27.62 kg/m?. Blood yhnlwhqb571 / 78 mmHg. Heart rate 99 bpm. METHOD ----- EFM ----- Goddard . Number of fetuses: 1. DATING ----- Cycle:regular cycle GA by stated dating 37 w + 5 d NICOLE by stated dating :07/11/2020 Method of dating:Restore dating from previous exam Assigned:Dating performed on 03/28/2020, based on the externalassessment Assigned GA37 w + 5 d Assigned NICOLE:07/11/2020 NON STRESS TEST ----- NST interpretation: reactive. Test duration 30 min. Baseline FHR 120 bpm.Baseline variability: moderate. Accelerations: Present. Decelerations: absent. Uterine activity: absent COMMENT ----- Nursing notes: Patient reports + movement and no bleeding, leakingor bob. Patient scheduled twice weekly. FOLLOW-UP ----- She is to continue with twice-weekly testing along withweekly Doppler studies until delivery. Recommend delivery at 38-39 weeks. Labor precautions along with kick counts Thank you for allowing us to partake in your patient's care. IMPRESSION ----- Here today for interval growth ultrasound and fetaltesting with Doppler study secondary to suspected IUGR. She had no complaints and reported good movements. Please refer to OB ultrasound dated today for details in the intervalfetal growth. The EFW is 5% and AC 18%. The amniotic fluid is normal RAVEN is 13.5 with MVP 4.1 cm. Good fetalmovements were noted. The umbilical artery Doppler studies show normal S/D ratio. Ultrasound does have its limitations in detecting all congenitalanomalies. Case also discussed with Dr. Maguire concerning timing of delivery which isrecommended at 38-39 weeks. Lazaro Maguire MD US ORDERABLES documented in this encounter Visit Diagnoses Diagnosis Bubes-vet-pwlgn fetus, third trimester documented in this encounter
--- OUTSIDE RECORDS SUMMARY | 2024-07-26 02:27 | XMS_ITS | Encounter Summary ---
Author Organization [facility] Address [address] [place] [address] Care Team Providers Care Skiver Machine Operator Name Role Phone Unavailable Primary Care Provider Unavailabl e Reason for Referral * Radiology Services (Routine) - Closed Specialty Diagnoses / Procedures Referred By Contac t Referred To Contact Diagnoses Wclic-sry-viwhi fetus, third trimester Procedures US OB LIMITED + NST MA NON-STRESS TEST CHG US, UTERUS,LIMITED, 1/> FETUSES Lazaro Maguire MD [address] [address] Referral ID Status Reason Start Date Expiration Date V isits Requested Visits Authorized [id number] Closed STL CTS 05/17/2020 06/17/2021 1 1 EL MONEY ADVISOR Reason for Visit * Radiology Services (Routine) - Closed Specialty Diagnoses / Procedures Referred By Contac t Referred To Contact Diagnoses Vbgfz-ajg-syjcj fetus, third trimester Procedures US OB LIMITED + NST MA NON-STRESS TEST CHG US, UTERUS,LIMITED, 1/> FETUSES Lazaro Maguire MD [address] [address] Referral ID Status Reason Start Date Expiration Date V isits Requested Visits Authorized [id number] Closed STL CTS 05/17/2020 06/17/2021 1 1 Encounter Details Date Type Department Care Team (Latest Contact Info) Description 06/04/2020 7:23 AM TRAVEL MONEY ADVISOR - 06/04/2020 11:59 PM TRAVEL MONEY ADVISOR Hospital Encounter [facility] Maternal and [facility] [address] [place] [address] Lazaro Maguire MD [address] [place] [address] Discharge Disposition: Home or Self [...] have Coronavirus / COVID-19? No / Unsure 06/04/2020 7:23 AM TRAVEL MONEY ADVISOR documented as of this encounter Plan of Treatment Not on file documented as of this encounter Procedures Procedure Name Priority Date/Time Associated Diagnosis Comments US OB LIMITED + NST Routine 06/04/2020 9 :18 AM TRAVEL MONEY ADVISOR Iihct-ncx-adbcq fetus, third trimester documented in this encounter Results * US OB LIMITED + NST (06/04/2020 9:18 AM TRAVEL MONEY ADVISOR) Anatomical Region Laterality Modality Pelvis Ultrasound 06/04/2020 7:25 AM TRAVEL MONEY ADVISOR Impressions 06/04/2020 8:38 AM TRAVEL MONEY ADVISOR IMPRESSION ----- testing @ 34w5d for growth restriction. - Reactive NST. - Normal amniotic fluid. Continue twice weekly testing for growth restriction. Thank you for allowing us to participate in the care of this patient. Narrative 06/04/2020 8:38 AM TRAVEL MONEY ADVISOR Modified BPP Study ----- Pat. Name: ROSAURA BRADLEY Study Date: 06/04/2020 7:25am Pat. 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 O36.5930: Maternal care for other known or suspected poor growth Unspecified Fetus ?O09.33: Supervision of with insufficient care ?Z3A.34: Weeks Gestation of Procedures ?45759: NST/ monitoring ?62974: Limited 1 or more - RAVEN, FHR, position (modifier 59 for MBPP) HISTORY ----- OB History ? 1. Para 0 MATERNAL ASSESSMENT ----- Physical Exam ? Weight 64 kg. BMI 25.61 kg/m?. Blood pressure 124 / 71 mmHg. Heart rate 106 bpm. METHOD ----- EFM, Transabdominal ultrasound examination ----- [place] . Number of fetuses: 1. DATING ----- Cycle: regular cycle GA by stated dating 34 w + 5 d NICOLE by stated dating : 07/11/2020 Method of dating: Restore dating from previous exam Assigned: Dating performed on 03/28/2020, based on the external assessment Assigned GA 34 w + 5 d Assigned NICOLE: 07/11/2020 GENERAL EVALUATION ----- Cardiac activity present. Presentation cephalic. Placenta anterior. NON STRESS TEST ----- NST interpretation: reactive. Test duration 24 min. Baseline FHR 130 bpm. Baseline variability: moderate. Accelerations: Present. Decelerations: absent. Uterine activity: absent AMNIOTIC FLUID ASSESSMENT ----- Amount of AF: normal amount MVP 5.0 cm. RAVEN 11.6 cm. Q1 5.0 cm, Q2 2.8 cm, Q3 0.0 cm, Q4 3.9 cm COMMENT ----- Nurses Notes: Patient reports + movement and no bleeding, leaking of fluid or bob. Patient scheduled twice weekly. Procedure Note Gi Valiente MD - 06/04/2020 Modified BPP Study ----- Pat. Name:Marissa BRADLEY Date:06/04/2020 7:25am Pat. NO: [id number] :LAZARO MAGUIRE MD Site:[place]: :1995Age:24 ----- INDICATION ----- IUGR-Intrauterine Growth Delay Insufficient Care CODING ----- Diagnosis O36.5930: Maternal care for other known orsuspected poor growth Unspecified Fetus O09.33: Supervision of with insufficientantenatal care Z3A.34: Weeks Gestation of Procedures 10352: NST/ monitoring 39754: Limited 1 or more - RAVEN, FHR, position(modifier 59 for MBPP) HISTORY ----- OB History 1. Para 0 MATERNAL ASSESSMENT ----- Physical Exam Weight 64 kg. BMI 25.61 kg/m?. Blood vgoijkgk412 / 71 mmHg. Heart rate 106 bpm. METHOD ----- EFM, Transabdominal ultrasound examination ----- [place] . Number of fetuses: 1. DATING ----- Cycle:regular cycle GA by stated dating 34 w + 5 d NICOLE by stated dating :07/11/2020 Method of dating:Restore dating from previous exam Assigned:Dating performed on 03/28/2020, based on the externalassessment Assigned GA34 w + 5 d Assigned NICOLE:07/11/2020 GENERAL EVALUATION ----- Cardiac activity present. Presentation cephalic. Placenta anterior. NON STRESS TEST ----- NST interpretation: reactive. Test duration 24 min. Baseline FHR 130 bpm.Baseline variability: moderate. Accelerations: Present. Decelerations: absent. Uterine activity: absent AMNIOTIC FLUID ASSESSMENT ----- Amount of AF: normal amount MVP 5.0 cm. RAVEN 11.6 cm. Q1 5.0 cm, Q2 2.8 cm, Q3 0.0 cm, Q4 3.9 cm COMMENT ----- Nurses Notes: Patient reports + movement and no bleeding, leaking offluid or bob. Patient scheduled twice weekly. IMPRESSION ----- testing @ 34w5d for growth restriction. - Reactive NST. - Normal amniotic fluid. Continue twice weekly testing for growth restriction. Thank you for allowing us to participate in the care of this patient. Lazaro MARTINEZ ORDERABLES documented in this encounter Visit Diagnoses Diagnosis Pmapg-nru-szgqc fetus, third trimester documented in this encounter
--- OUTSIDE RECORDS SUMMARY | 2024-07-26 02:27 | XMS_ITS | Encounter Summary ---
Author Organization [facility] Address [address] [place] [address] Care Team Providers Care Dial Mounter Name Role Phone Unavailable Primary Care Provider Unavailabl e Reason for Referral * Radiology Services (Routine) - Closed Specialty Diagnoses / Procedures Referred By Contac t Referred To Contact Diagnoses Nlrxu-gwu-aektu fetus, third trimester Procedures US MONITORING Lazaro Garibay MD [address] [address] Referral ID Status Reason Start Date Expiration Date V isits Requested Visits Authorized [id number] Closed STL CTS 06/07/2020 07/08/2021 1 1 ILE CONVERTER Reason for Visit * Radiology Services (Routine) - Closed Specialty Diagnoses / Procedures Referred By Contac t Referred To Contact Diagnoses Cpiwm-omq-iajig fetus, third trimester Procedures US MONITORING TERESAT Lazaro Maguire MD [address] [address] Referral ID Status Reason Start Date Expiration Date V isits Requested Visits Authorized [id number] Closed STL CTS 06/07/2020 07/08/2021 1 1 Encounter Details Date Type Department Care Team (Latest Contact Info) Description 06/14/2020 8:15 AM TEXTILE CONVERTER - 06/14/2020 11:59 PM TEXTILE CONVERTER Hospital Encounter [facility] Maternal and Health [facility] [address] [place] [address] Lazaro Maguire MD [address] [address] Discharge Disposition: Home or Self [...] COVID-19? No / Unsure 06/14/2020 8:20 AM TEXTILE CONVERTER documented as of this encounter Plan of Treatment Not on file documented as of this encounter Procedures Procedure Name Priority Date/Time Associated Diagnosis Comments US MONITORING NST Routine 06/14/2020 9:25 AM TEXTILE CONVERTER Aubse-uix-qmevl fetus, third trimester documented in this encounter Results * US MONITORING NST (06/14/2020 9:25 AM TEXTILE CONVERTER) Anatomical Region Laterality Modality Ultrasound 06/14/2020 8:25 AM TEXTILE CONVERTER Impressions 06/14/2020 8:57 AM TEXTILE CONVERTER IMPRESSION ----- 1. [place] living fetus with a gestational age of 36w 1d, based on the reported clinical dates. 2. NST reactive; reassuring for gestational age. Continue current surveillance plan. Thank you for allowing us to participate in the care of this patient. Narrative 06/14/2020 8:[address] [facility] NST ----- Pat. Name: ROSAURA BRADLEY Study Date: 06/14/2020 8:25am Pat. 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 O36.5930: Maternal care for other known or suspected poor growth Unspecified Fetus ?O09.33: Supervision of with insufficient care ?Z3A.36: Weeks Gestation of Procedures ?15116: NST/ monitoring HISTORY ----- OB History ? 1. Para 0 MATERNAL ASSESSMENT ----- Physical Exam ? Weight 68 kg. BMI 27.62 kg/m?. Blood pressure 119 / 70 mmHg. Heart rate 103 bpm. METHOD ----- EFM ----- [place] . [...] reactive. Test duration 30 min. Baseline FHR 130 bpm. Baseline variability: moderate. Accelerations: Present. Decelerations: absent. Uterine activity: present, 2, contractions in 30 minutes COMMENT ----- Nursing notes: Patient reports + movement and no bleeding, leaking or bob. Patient scheduled twice weekly. Pt to US now. Procedure Note Jessica Moran MD - 06/14/[facility] NST ----- Name:Marissa BRADLEY Date:06/14/2020 8:25am Pat. NO: [id number] MD:LAZARO MAGUIRE MD [facility]1995Age:24 ----- INDICATION ----- Growth Restriction (IUGR) Insufficient Care CODING ----- Diagnosis O36.5930: Maternal care for other known orsuspected poor growth Unspecified Fetus O09.33: Supervision of with insufficientantenatal care Z3A.36: Weeks Gestation of Procedures 67907: NST/ monitoring HISTORY ----- OB History 1. Para 0 MATERNAL ASSESSMENT ----- Physical Exam Weight 68 kg. BMI 27.62 kg/m?. Blood / 70 mmHg. Heart rate 103 bpm. METHOD ----- EFM ----- [place] . Number of fetuses: 1. DATING ----- Cycle:regular cycle GA by stated dating 36 w + 1 d NICOLE by stated dating :07/11/2020 Method of dating:Restore dating from previous exam Assigned:Dating performed on 03/28/2020, based on the externalassessment Assigned GA36 w + 1 d Assigned NICOLE:07/11/2020 NON STRESS TEST ----- NST interpretation: reactive. Test duration 30 min. Baseline FHR 130 bpm.Baseline variability: moderate. Accelerations: Present. Decelerations: absent. Uterine activity: present, 2, contractions in 30minutes COMMENT ----- Nursing notes: Patient reports + movement and no bleeding, leakingor bob. Patient scheduled twice weekly. Pt to US now. IMPRESSION ----- 1. [place] living fetus with a gestational age of 36w 1d, based on thereported clinical dates. 2. NST reactive; reassuring for gestational age. Continue current surveillance plan. Thank you for allowing us to participate in the care of this patient. Lazaro Maguire MD US ORDERABLES documented in this encounter Visit Diagnoses Diagnosis Udphn-frb-pohhn fetus, third trimester documented in this encounter
--- OUTSIDE RECORDS SUMMARY | 2024-07-26 02:27 | XMS_ITS | Encounter Summary ---
Author Organization [facility] Address [address] [place] [address] Care Team Providers Care Light Technician Name Role Phone Unavailable Primary Care Provider Unavailabl e Reason for Referral * Radiology Services (Routine) - Closed Specialty Diagnoses / Procedures Referred By Contac t Referred To Contact Diagnoses Lyqxe-efv-brqdd fetus, third trimester Procedures US MONITORING TERESAT Lazaro Maguire MD [address] [address] Referral ID Status Reason Start Date Expiration Date V isits Requested Visits Authorized [id number] Closed STL CTS 05/17/2020 06/17/2021 1 1 OMS AND BORDER PROTECTION INSPECTOR Reason for Visit * Radiology Services (Routine) - Closed Specialty Diagnoses / Procedures Referred By Contac t Referred To Contact Diagnoses Hbjzg-ijq-inlwr fetus, third trimester Procedures US MONITORING TERESAT Lazaro Maguire MD [address] [address] Referral ID Status Reason Start Date Expiration Date V isits Requested Visits Authorized [id number] Closed STL CTS 05/17/2020 06/17/2021 1 1 Encounter Details Date Type Department Care Team (Latest Contact Info) Description 06/07/2020 1:00 PM CUSTOMS AND BORDER PROTECTION INSPECTOR - 06/07/2020 11:59 PM CUSTOMS AND BORDER PROTECTION INSPECTOR Hospital Encounter [facility] Maternal and Health [facility] [address] [place] [id number] Lazaro Maguire MD [address] [address] Discharge Disposition: Home or Self [...] have Coronavirus / COVID-19? No / Unsure 06/07/2020 1:00 PM CUSTOMS AND BORDER PROTECTION INSPECTOR documented as of this encounter Plan of Treatment Not on file documented as of this encounter Procedures Procedure Name Priority Date/Time Associated Diagnosis Comments US MONITORING NST Routine 06/07/2020 1:38 PM CUSTOMS AND BORDER PROTECTION INSPECTOR Lhohh-nff-tscdh fetus, third trimester documented in this encounter Results * US MONITORING NST (06/07/2020 1:38 PM CUSTOMS AND BORDER PROTECTION INSPECTOR) Anatomical Region Laterality Modality Ultrasound 06/07/2020 1:07 PM CUSTOMS AND BORDER PROTECTION INSPECTOR Impressions 06/07/2020 1:31 PM CUSTOMS AND BORDER PROTECTION INSPECTOR IMPRESSION ----- NST reactive Narrative 06/07/2020 1:31 PM CUSTOMS AND BORDER PROTECTION INSPECTOR Angelica NST ----- Pat. Name: ROSAURA BRADLEY Study Date: 06/07/2020 1:07pm Pat. 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 O36.5930: Maternal care for other known or suspected poor growth Unspecified Fetus ?O09.33: Supervision of with insufficient care ?Z3A.35: Weeks Gestation of Procedures ?00143: NST/ monitoring HISTORY ----- OB History ? 1. Para 0 MATERNAL ASSESSMENT ----- Physical Exam ? Weight 64 kg. BMI 25.61 kg/m?. Blood pressure 132 / 77 mmHg. Heart rate 103 bpm. METHOD ----- EFM ----- [place] . Number of fetuses: 1. DATING ----- Cycle: regular cycle GA by stated dating 35 w + 1 d NICOLE by stated dating : 07/11/2020 Method of dating: Restore dating from previous exam Assigned: Dating performed on 03/28/2020, based on the external assessment Assigned GA 35 w + 1 d Assigned NICOLE: 07/11/2020 NON STRESS TEST ----- NST interpretation: reactive. Test duration 30 min. Baseline FHR 130 bpm. Baseline variability: moderate. Accelerations: Present. Decelerations: absent. Uterine activity: absent COMMENT ----- Nursing notes: Patient reports + movement and no bleeding, leaking or bob. Patient scheduled twice weekly. Pt to US now for FU/UMBs. Procedure Note Viktor Carlson MD - 06/07/[facility] NST ----- Pat. Name:Marissa BRADLEY Date:06/07/2020 1:07pm Pat. NO: [id number] MD:LAZARO MAGUIRE MD Site:[place]: :1995Age:24 ----- INDICATION ----- IUGR-Intrauterine Growth Delay Insufficient Care CODING ----- Diagnosis O36.5930: Maternal care for other known orsuspected poor growth Unspecified Fetus O09.33: Supervision of with insufficientantenatal care Z3A.35: Weeks Gestation of Procedures 41844: NST/ monitoring HISTORY ----- OB History 1. Para 0 MATERNAL ASSESSMENT ----- Physical Exam Weight 64 kg. BMI 25.61 kg/m?. Blood kuqgvzdf102 / 77 mmHg. Heart rate 103 bpm. METHOD ----- EFM ----- [place] . Number of fetuses: 1. DATING ----- Cycle:regular cycle GA by stated dating 35 w + 1 d NICOLE by stated dating :07/11/2020 Method of dating:Restore dating from previous exam Assigned:Dating performed on 03/28/2020, based on the externalassessment Assigned GA35 w + 1 d Assigned NICOLE:07/11/2020 NON STRESS TEST ----- NST interpretation: reactive. Test duration 30 min. Baseline FHR 130 bpm.Baseline variability: moderate. Accelerations: Present. Decelerations: absent. Uterine activity: absent COMMENT ----- Nursing notes: Patient reports + movement and no bleeding, leakingor bob. Patient scheduled twice weekly. Pt to US now for FU/UMBs. IMPRESSION ----- NST reactive Lazaro Maguire MD ORDERABLES documented in this encounter Visit Diagnoses Diagnosis Dwqgy-zbh-gnkux fetus, third trimester documented in this encounter
--- OUTSIDE RECORDS SUMMARY | 2024-07-26 02:27 | XMS_ITS | Encounter Summary ---
Author Organization [facility] Address [address] [place] [address] Care Team Providers Care Hourly Caregiver Name Role Phone Unavailable Primary Care Provider Unavailabl e Reason for Referral * Radiology Services (Routine) - Closed Specialty Diagnoses / Procedures Referred By Contac t Referred To Contact Diagnoses Qzuzz-qcl-cafrh fetus, third trimester Procedures US OB LTD+UMB ART DOPPLER CHG DOPPLER UMBILICAL ARTERY CHG US, UTERUS,LIMITED, 1/> FETUSES Lazaro Maguire MD [address] [address] Referral ID Status Reason Start Date Expiration Date V isits Requested Visits Authorized [id number] Closed STL CTS 05/18/2020 08/18/2020 1 1 LATHE PROGRAMMER Reason for Visit * Radiology Services (Routine) - Closed Specialty Diagnoses / Procedures Referred By Contac t Referred To Contact Diagnoses Rjdcq-uqq-fisgn fetus, third trimester Procedures US OB LTD+UMB ART DOPPLER CHG DOPPLER UMBILICAL ARTERY CHG US, UTERUS,LIMITED, 1/> FETUSES Lazaro Maguire MD [address] [address] Referral ID Status Reason Start Date Expiration Date V isits Requested Visits Authorized [id number] Closed STL CTS 05/18/2020 08/18/2020 1 1 Encounter Details Date Type Department Care Team (Latest Contact Info) Description 05/31/2020 8:42 AM CNC LATHE PROGRAMMER - 05/31/2020 11:59 PM CNC LATHE PROGRAMMER Hospital Encounter [facility] Maternal and [facility] [address] [place] [address] Lazaro Maguire MD [address] [place] [address] Discharge Disposition: Home or Self [...] have Coronavirus / COVID-19? No / Unsure 05/31/2020 8:42 AM CNC LATHE PROGRAMMER documented as of this encounter Plan of Treatment Not on file documented as of this encounter Procedures Procedure Name Priority Date/Time Associated Diagnosis Comments US OB LTD+UMB ART DOPPLER Routine 05/31/2020 9:14 AM CNC LATHE PROGRAMMER Jobxa-xod-keoqu fetus, third trimester documented in this encounter Results * US OB LTD+UMB ART DOPPLER (05/31/2020 9:14 AM CNC LATHE PROGRAMMER) Anatomical Region Laterality Modality Pelvis Ultrasound 05/31/2020 8:59 AM CNC LATHE PROGRAMMER Impressions 05/31/2020 9:16 AM CNC LATHE PROGRAMMER IMPRESSION ----- AFV normal Umbilical artery doppler studies are normal Narrative 05/31/2020 9:16 AM CNC LATHE PROGRAMMER STL Limited ----- PatShameka Name: ROSAURA BRADLEY Study Date: 05/31/2020 8:59am Pat. 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 O36.5930: Maternal care for other known or suspected poor growth Unspecified Fetus ?O09.33: Supervision of with insufficient care ?Z3A.34: Weeks Gestation of Procedures ?54758: Limited 1 or more - RAVEN, FHR, position ?85861: Umbilical Artery Doppler HISTORY ----- OB History ? 1. Para 0 MATERNAL ASSESSMENT ----- Physical Exam ? Weight 64 kg. BMI 25.61 kg/m?. METHOD ----- Transabdominal ultrasound examination ----- [place] . Number of fetuses: 1. DATING ----- Cycle: regular cycle GA by stated dating 34 w + 1 d NICOLE by stated dating : 07/11/2020 Method of dating: Restore dating from previous exam Assigned: Dating performed on 03/28/2020, based on the external assessment Assigned GA 34 w + 1 d Assigned NICOLE: 07/11/2020 BIOMETRY ----- Other Structures Biometry: AF MVP ?5.4 ?cm ? RAVEN ? 13.7 ? cm ? 45% ? [place] FHR ? 134 ?bpm ? GENERAL EVALUATION ----- Cardiac activity present. FHR 134 bpm. movements present. Presentation cephalic. Placenta Placental site: anterior. Umbilical cord Cord vessels: 3 vessel cord. Cord insertion: placental insertion: normal. Amniotic fluid Amount of AF: normal amount. MVP 5.4 cm. RAVEN 13.7 cm. Q1 5.4 cm, Q2 2.2 cm, Q3 3.9 cm, Q4 2.2 cm. ANATOMY ----- The following structures appear normal: Heart / Thorax ?Cardiac rhythm. Abdomen ? Stomach. Bladder. DOPPLER ----- Umbilical Artery: normal. PI ?1.05 ?82% ? Twyla RI ?0.67 ?83% ? Twyla PS ?58.10 ?cm/s ? 83% ? [place] ED ?19.50 ?cm/s ? S / D ? 2.98 ?74% ? Twyla COMMENT ----- Patient's name and date of were verified by the meat and seafood manager prior to the exam. Procedure Note Viktor Carlson MD - 05/31/2020 STL Limited ----- Janis. Name:Marissa BRADLEY Date:05/31/2020 8:59am Pat. NO: [id number] MD:LAZARO MAGUIRE MD [facility] :1995Age:24 ----- INDICATION ----- Growth Restriction (IUGR) Insufficient Care CODING ----- Diagnosis O36.5930: Maternal care for other known orsuspected poor growth Unspecified Fetus O09.33: Supervision of with insufficientantenatal care Z3A.34: Weeks Gestation of Procedures 36838: Limited 1 or more - RAVEN, R, position 96383: Umbilical Artery Doppler HISTORY ----- OB History 1. Para 0 MATERNAL ASSESSMENT ----- Physical Exam Weight 64 kg. BMI 25.61 kg/m?. METHOD ----- Transabdominal ultrasound examination ----- [place] . Number of fetuses: 1. DATING ----- Cycle:regular cycle GA by stated dating 34 w + 1 d NICOLE by stated dating :07/11/2020 Method of dating:Restore dating from previous exam Assigned:Dating performed on 03/28/2020, based on the externalassessment Assigned GA34 w + 1 d Assigned NICOLE:07/11/2020 BIOMETRY ----- Other Structures Biometry: AF MVP 5.4 cm RAVEN 13.7 cm45% [place] FHR 134 bpm GENERAL EVALUATION ----- Cardiac activity present. FHR 134 bpm. movements present. Presentation cephalic. Placenta Placental site: anterior. Umbilical cord Cord vessels: 3 vessel cord. Cord insertion: placentalinsertion: normal. Amniotic fluid Amount of AF: normal amount. MVP 5.4 cm. RAVEN 13.7 cm. Q15.4 cm, Q2 2.2 cm, Q3 3.9 cm, Q4 2.2 cm. ANATOMY ----- The following structures appear normal: Heart / Thorax Cardiac rhythm. Abdomen Stomach. Bladder. DOPPLER ----- Umbilical Artery: normal. PI 1.0582% Twyla RI 0.6783% Twyla PS 58.10 cm/s83% Ebbing ED 19.50 cm/s S / D 2.9874% Twyla COMMENT ----- Patient's name and date of were verified by the meat and seafood manager prior tothe exam. IMPRESSION ----- AFV normal Umbilical artery doppler studies are normal Lazaro Maguire MD US ORDERABLES documented in this encounter Visit Diagnoses Diagnosis Qzjcr-wrc-iyqjs fetus, third trimester documented in this encounter
--- OUTSIDE RECORDS SUMMARY | 2024-07-26 02:27 | XMS_ITS | Encounter Summary ---
Author Organization [facility] Address [address] [facility] Attn: Epic Prelude ADT [place]AH [place] [address] Care Team Providers Care Peeler Operator Name Role Phone Unavailable Primary Care Provider Unavailabl e Encounter Details Date Type Department Care Team (Latest Contact Info) Description 06/11/2020 Travel Social History Tobacco Use Types Packs/Day [...] have Coronavirus / COVID-19? No / Unsure 06/11/2020 7:21 AM SUPPLEMENTAL NURSE documented as of this encounter Plan of Treatment Not on file documented as of this encounter Visit Diagnoses Not on filedocumented in this encounter
--- OUTSIDE RECORDS SUMMARY | 2024-07-26 02:27 | XMS_ITS | Encounter Summary ---
Author Organization [facility] Address [address] [place] [address] Care Team Providers Care Preliminary School Psychologist Name Role Phone Unavailable Primary Care Provider Unavailabl e Reason for Referral * Radiology Services (Routine) - Closed Specialty Diagnoses / Procedures Referred By Contac t Referred To Contact Diagnoses Cwabg-wle-bulyc fetus, third trimester Procedures US OB LTD+UMB ART DOPPLER CHG DOPPLER UMBILICAL ARTERY CHG US, UTERUS,LIMITED, 1/> FETUSES Lazaro Maguire MD [address] [address] Referral ID Status Reason Start Date Expiration Date V isits Requested Visits Authorized [id number] Closed [facility] CTS 06/08/2020 09/16/2020 1 1 ECONOMICS EXPERT Reason for Visit * Radiology Services (Routine) - Closed Specialty Diagnoses / Procedures Referred By Contac t Referred To Contact Diagnoses Rxlxf-euk-ufgko fetus, third trimester Procedures US OB LTD+UMB ART DOPPLER CHG DOPPLER UMBILICAL ARTERY CHG US, UTERUS,LIMITED, 1/> FETUSES Lazaro Maguire MD [address] [address] Referral ID Status Reason Start Date Expiration Date V isits Requested Visits Authorized [id number] Closed [facility] CTS 06/08/2020 09/16/2020 1 1 Encounter Details Date Type Department Care Team (Latest Contact Info) Description 06/18/2020 8:30 AM HOME ECONOMICS EXPERT - 06/18/2020 11:59 PM HOME ECONOMICS EXPERT Hospital Encounter [facility] Maternal and [facility] [address] [place] [address] Lazaro Maguire MD [address] [place] [address] Discharge Disposition: Home or Self [...] COVID-19? No / Unsure 06/18/2020 7:48 AM HOME ECONOMICS EXPERT documented as of this encounter Plan of Treatment Not on file documented as of this encounter Procedures Procedure Name Priority Date/Time Associated Diagnosis Comments US OB LTD+UMB ART DOPPLER Routine 06/18/2020 8:58 AM HOME ECONOMICS EXPERT Asuwr-zpq-qriit fetus, third trimester documented in this encounter Results * US OB LTD+UMB ART DOPPLER (06/18/2020 8:58 AM HOME ECONOMICS EXPERT) Anatomical Region Laterality Modality Pelvis Ultrasound 06/18/2020 8:45 AM HOME ECONOMICS EXPERT Impressions 06/18/2020 9:06 AM HOME ECONOMICS EXPERT IMPRESSION ----- Here today for testing secondary to suspected IUGR/SGA. Patient no complaints reported good movements. The amniotic fluid volume is normal RAVEN 10.5 cm with MVP 4.7 cm and there were good movements noted. The umbilical artery Doppler studies show normal S/D ratio. Reassuring status with a reactive NST and noted to have 1 variable and bob irregularly on the monitor as noted above. Therefore based on the above we will send to labor and delivery at [facility] for further evaluation to rule out labor and prolonged monitoring. Based on those findings will also determine further management such as delivery. Otherwise she will continue with her previously scheduled twice weekly testing along with weekly Doppler studies and interval growth ultrasound as previously scheduled. Primary OB provider's office was notified. Narrative 06/18/2020 9:06 AM HOME ECONOMICS EXPERT [facility] ----- Janis. Name: ROSAURA BRADLEY Study Date: 06/18/2020 8:45am Pat. NO: [id number] Referring ??: LAZARO MAGUIRE MD Site: [place] Instrumentation Manager: aC Frey : 1995 Age: 24 ----- INDICATION ----- Growth Restriction (IUGR) Insufficient Care CODING ----- Diagnosis ? O36.5930: Maternal care for other known or suspected poor growth Unspecified Fetus ?O09.33: Supervision of with insufficient care ?Z3A.36: Weeks Gestation of Procedures ?02357: Limited 1 or more - RAVEN, FHR, position ?36716: Umbilical Artery Doppler HISTORY ----- OB History ? 1. Para 0 MATERNAL ASSESSMENT ----- Physical Exam ? Weight 68 kg. BMI 27.62 kg/m?. METHOD ----- Transabdominal ultrasound examination ----- Goddard . Number of fetuses: 1. DATING ----- Cycle: regular cycle GA by stated dating 36 w + 5 d NICOLE by stated dating : 07/11/2020 Method of dating: Restore dating from previous exam Assigned: Dating performed on 03/28/2020, based on the external assessment Assigned GA 36 w + 5 d Assigned NICOLE: 07/11/2020 BIOMETRY ----- Other Structures Biometry: AF MVP ?4.7 ?cm ? RAVEN ? 10.5 ? cm ? 20% ? Hastings FHR ? 138 ?bpm ? GENERAL EVALUATION ----- Cardiac activity present. FHR 138 bpm. movements present. Presentation cephalic. Placenta Placental site: anterior. Umbilical cord Cord insertion: placental insertion: normal. Amniotic fluid Amount of AF: normal amount. MVP 4.7 cm. RAVEN 10.5 cm. Q1 4.7 cm, Q2 0.0 cm, Q3 3.5 cm, Q4 2.4 cm. ANATOMY ----- The following structures appear normal: Heart / Thorax ?Cardiac rhythm. Abdomen ? Stomach. Bladder. DOPPLER ----- Umbilical Artery: normal. PI ?0.91 ?69% ? Twyla RI ?0.62 ?75% ? Twyla PS ?63.80 ?cm/s ? 90% ? [place] ED ?24.40 ?cm/s ? S / D ? 2.61 ?65% ? Twyla COMMENT ----- Patient's name and date of were verified by the practice clinician prior to the exam. FOLLOW-UP ----- As noted above patient is to report to labor and delivery at [facility] and depending on those findings also determine further management possibly delivery. Otherwise she is to be further evaluated to rule out labor and for prolonged monitoring. Otherwise she will continue with her previously scheduled twice weekly testing along with weekly Doppler studies and interval growth ultrasound as previously scheduled. PTL precautions along with kick counts. Thank you for allowing us to partake in your patient's care. Procedure Note Darryl Avilez DO - 06/18/2020 [facility] Limited ----- Pat. Name:Marissa BRADLEY Date:06/18/2020 8:45am Pat. NO: [id number] MD:LAZARO MAGUIRE MD [facility] Frey :1995Age:24 ----- INDICATION ----- Growth Restriction (IUGR) Insufficient Care CODING ----- Diagnosis O36.5930: Maternal care for other known orsuspected poor growth Unspecified Fetus O09.33: Supervision of with insufficientantenatal care Z3A.36: Weeks Gestation of Procedures 69246: Limited 1 or more - RAVEN, FHR, position 94209: Umbilical Artery Doppler HISTORY ----- OB History 1. Para 0 MATERNAL ASSESSMENT ----- Physical Exam Weight 68 kg. BMI 27.62 kg/m?. METHOD ----- Transabdominal ultrasound examination ----- [place] . Number of fetuses: 1. DATING ----- Cycle:regular cycle GA by stated dating 36 w + 5 d NICOLE by stated dating :07/11/2020 Method of dating:Restore dating from previous exam Assigned:Dating performed on 03/28/2020, based on the externalassessment Assigned GA36 w + 5 d Assigned NICOLE:07/11/2020 BIOMETRY ----- Other Structures Biometry: AF MVP 4.7 cm RAVEN 10.5 cm20% [place] FHR 138 bpm GENERAL EVALUATION ----- Cardiac activity present. FHR 138 bpm. movements present. Presentation cephalic. Placenta Placental site: anterior. Umbilical cord Cord insertion: placental insertion: normal. Amniotic fluid Amount of AF: normal amount. MVP 4.7 cm. RAVEN 10.5 cm. Q14.7 cm, Q2 0.0 cm, Q3 3.5 cm, Q4 2.4 cm. ANATOMY ----- The following structures appear normal: Heart / Thorax Cardiac rhythm. Abdomen Stomach. Bladder. DOPPLER ----- Umbilical Artery: normal. PI 0.9169% Twyla RI 0.6275% Twyla PS 63.80 cm/s90% [place] ED 24.40 cm/s S / D 2.6165% Twyla COMMENT ----- Patient's name and date of were verified by the practice clinician prior tothe exam. FOLLOW-UP ----- As noted above patient is to report to labor and delivery at [facility] and depending on those findings also determine further management possibly delivery. Otherwise she is to be furtherevaluated to rule out labor and for prolonged monitoring. Otherwise she will continue with her previously scheduledtwice weekly testing along with weekly Doppler studies and interval growth ultrasound as previouslyscheduled. PTL precautions along with kick counts. Thank you for allowing us to partake in your patient's care. IMPRESSION ----- Here today for testing secondary to suspected IUGR/SGA.Patient no complaints reported good movements. The amniotic fluid volume is normal RAVEN 10.5 cm with MVP 4.7 cm and therewere good movements noted. The umbilical artery Doppler studies show normal S/D ratio. Reassuring status with a reactive NST and noted to have 1 variableand bob irregularly on the monitor as noted above. Therefore based on the above we will send to labor and delivery [facility] for further evaluation to rule out labor and prolonged monitoring. Based on those findings will alsodetermine further management such as delivery. Otherwise she will continue with her previously scheduled twice weekly fetaltesting along with weekly Doppler studies and interval growth ultrasound as previously scheduled. Primary OB provider's office was notified. Lazaro Maguire MD US ORDERABLES documented in this encounter Visit Diagnoses Diagnosis Glwqu-qem-fsgol fetus, third trimester documented in this encounter
--- OUTSIDE RECORDS SUMMARY | 2024-07-26 02:27 | XMS_ITS | Encounter Summary ---
Author Organization [facility] Address [address] [place] [address] Care Team Providers Care Bilingual Kindergarten Teacher Name Role Phone Unavailable Primary Care Provider Unavailabl e Reason for Referral * Radiology Services (Routine) - Closed Specialty Diagnoses / Procedures Referred By Contac t Referred To Contact Diagnoses Guqfy-moq-xiqag fetus, third trimester Procedures US OB LIMITED + NST UT NON-STRESS TEST CHG US, UTERUS,LIMITED, 1/> FETUSES Lazaro Maguire MD [address] [address] Referral ID Status Reason Start Date Expiration Date V isits Requested Visits Authorized [id number] Closed STL CTS 05/18/2020 08/18/2020 1 1 DENTIAL DOOR INSTALLER Reason for Visit * Radiology Services (Routine) - Closed Specialty Diagnoses / Procedures Referred By Contac t Referred To Contact Diagnoses Yshdj-pda-nkcoa fetus, third trimester Procedures US OB LIMITED + NST UT NON-STRESS TEST CHG US, UTERUS,LIMITED, 1/> FETUSES Lazaro Maguire MD [address] [address] Referral ID Status Reason Start Date Expiration Date V isits Requested Visits Authorized [id number] Closed [facility] CTS 05/18/2020 08/18/2020 1 1 Encounter Details Date Type Department Care Team (Latest Contact Info) Description 05/28/2020 7:25 AM RESIDENTIAL DOOR INSTALLER - 05/28/2020 11:59 PM RESIDENTIAL DOOR INSTALLER Hospital Encounter [facility] Maternal and [facility] [address] [place] [address] Lazaro Maguire MD [address] [place] [address] Discharge Disposition: Home or Self [...] have Coronavirus / COVID-19? No / Unsure 05/28/2020 7:25 AM RESIDENTIAL DOOR INSTALLER documented as of this encounter Plan of Treatment Not on file documented as of this encounter Procedures Procedure Name Priority Date/Time Associated Diagnosis Comments US OB LIMITED + NST Routine 05/28/2020 8 :20 AM RESIDENTIAL DOOR INSTALLER Vfesv-hxd-urwxb fetus, third trimester documented in this encounter Results * US OB LIMITED + NST (05/28/2020 8:20 AM RESIDENTIAL DOOR INSTALLER) Anatomical Region Laterality Modality Pelvis Ultrasound 05/28/2020 7:27 AM RESIDENTIAL DOOR INSTALLER Impressions 05/28/2020 8:07 AM RESIDENTIAL DOOR INSTALLER IMPRESSION ----- 1. Goddard living fetus with a gestational age of 35w0d, based on the reported clinical dates. 2. Amniotic fluid volume is normal for gestational age. 3. NST reactive. Continue current surveillance plan. Thank you for allowing us to participate in the care of this patient. Narrative 05/28/2020 8:07 AM RESIDENTIAL DOOR INSTALLER Modified BPP Study ----- Pat. Name: ROSAURA BRADLEY Study Date: 05/28/2020 7:27am Pat. NO: [id number] Referring ??MD: LAZARO MAGUIRE MD Site: [place] Data Warehousing Manager: : 1995 Age: 24 ----- INDICATION ----- IUGR-Intrauterine Growth Delay Insufficient Care CODING ----- Diagnosis ? O36.5930: Maternal care for other known or suspected poor growth Unspecified Fetus ?O09.33: Supervision of with insufficient care ?Z3A.33: Weeks Gestation of Procedures ?79622: NST/ monitoring ?28927: Limited 1 or more - RAVEN, FHR, position (modifier 59 for MBPP) HISTORY ----- OB History ? 1. Para 0 MATERNAL ASSESSMENT ----- Physical Exam ? Weight 64 kg. BMI 25.61 kg/m?. Blood pressure 140 / 78 mmHg. Heart rate 114 bpm. ?Blood Pressure Profile: ?Right arm: # 1 127 / 68 mmHg, MAP 87.7 mmHg. ?Repeat. METHOD ----- EFM, Transabdominal ultrasound examination ----- Goddard . Number of fetuses: 1. DATING ----- Cycle: regular cycle GA by stated dating 33 w + 5 d NICOLE by stated dating : 07/11/2020 Method of dating: Restore dating from previous exam Assigned: Dating performed on 03/28/2020, based on the external assessment Assigned GA 33 w + 5 d Assigned NICOLE: 07/11/2020 GENERAL EVALUATION ----- Cardiac activity present. Presentation cephalic. NON STRESS TEST ----- NST interpretation: reactive. Test duration 30 min. Baseline FHR 130 bpm. Baseline variability: moderate. Accelerations: Present. Decelerations: absent. Uterine activity: absent AMNIOTIC FLUID ASSESSMENT ----- Amount of AF: normal amount MVP 4.7 cm. RAVEN 12.1 cm. Q1 1.5 cm, Q2 3.4 cm, Q3 4.7 cm, Q4 2.4 cm COMMENT ----- Nurses Notes: Patient reports + movement and no bleeding, leaking of fluid or bob. Patient scheduled twice weekly. Procedure Note Joel Parham MD - 05/28/2020 Modified BPP Study ----- Pat. Name:Marissa BRADLEY Date:05/28/2020 7:27am Pat. NO: [id number] MD:LAZARO MAGUIRE MD [place]1995Age:24 ----- INDICATION ----- IUGR-Intrauterine Growth Delay Insufficient Care CODING ----- Diagnosis O36.5930: Maternal care for other known orsuspected poor growth Unspecified Fetus O09.33: Supervision of with insufficientantenatal care Z3A.33: Weeks Gestation of Procedures 12081: NST/ monitoring 30809: Limited 1 or more - RAVEN, FHR, position(modifier 59 for MBPP) HISTORY ----- OB History 1. Para 0 MATERNAL ASSESSMENT ----- Physical Exam Weight 64 kg. BMI 25.61 kg/m?. Blood eoroywna148 / 78 mmHg. Heart rate 114 bpm. Blood Pressure Profile: Right arm: # 1 127 / 68 mmHg, MAP 87.7 mmHg. Repeat. METHOD ----- EFM, Transabdominal ultrasound examination ----- [place]dard . Number of fetuses: 1. DATING ----- Cycle:regular cycle GA by stated dating 33 w + 5 d NICOLE by stated dating :07/11/2020 Method of dating:Restore dating from previous exam Assigned:Dating performed on 03/28/2020, based on the externalassessment Assigned GA33 w + 5 d Assigned NICOLE:07/11/2020 GENERAL EVALUATION ----- Cardiac activity present. Presentation cephalic. NON STRESS TEST ----- NST interpretation: reactive. Test duration 30 min. Baseline FHR 130 bpm.Baseline variability: moderate. Accelerations: Present. Decelerations: absent. Uterine activity: absent AMNIOTIC FLUID ASSESSMENT ----- Amount of AF: normal amount MVP 4.7 cm. RAVEN 12.1 cm. Q1 1.5 cm, Q2 3.4 cm, Q3 4.7 cm, Q4 2.4 cm COMMENT ----- Nurses Notes: Patient reports + movement and no bleeding, leaking offluid or bob. Patient scheduled twice weekly. IMPRESSION ----- 1. Goddard living fetus with a gestational age of 35w0d, based on thereported clinical dates. 2. Amniotic fluid volume is normal for gestational age. 3. NST reactive. Continue current surveillance plan. Thank you for allowing us to participate in the care of this patient. Lazaro Maguire MD US ORDERABLES documented in this encounter Visit Diagnoses Diagnosis Hyndj-ltk-gdbex fetus, third trimester documented in this encounter
--- OUTSIDE RECORDS SUMMARY | 2024-07-26 02:27 | XMS_ITS | Encounter Summary ---
Author Organization [facility] Address [address] [place] [address] Care Team Providers Care Tip Fixer Name Role Phone Unavailable Primary Care Provider Unavailabl e Reason for Referral * Radiology Services (Routine) - Closed Specialty Diagnoses / Procedures Referred By Contac t Referred To Contact Diagnoses Wbbiw-acv-eaxyz fetus, third trimester Procedures US MONITORING Lazaro Garibay MD [address] [address] Referral ID Status Reason Start Date Expiration Date V isits Requested Visits Authorized [id number] Closed STL CTS 06/14/2020 07/15/2021 1 1 SFORCE SPECIALIST Reason for Visit * Radiology Services (Routine) - Closed Specialty Diagnoses / Procedures Referred By Contac t Referred To Contact Diagnoses Puamw-qlm-viman fetus, third trimester Procedures US MONITORING TERESAT Lazaro Maguire MD [address] [address] Referral ID Status Reason Start Date Expiration Date V isits Requested Visits Authorized [id number] Closed [facility]L CTS 06/14/2020 07/15/2021 1 1 Encounter Details Date Type Department Care Team (Latest Contact Info) Description 06/18/2020 7:45 AM SALESFORCE SPECIALIST - 06/18/2020 11:59 PM SALESFORCE SPECIALIST Hospital Encounter [facility] Maternal and Health [facility] [address] [place] [address] Lazaro Maguire MD [address] [address] Discharge Disposition: Home or Self [...] COVID-19? No / Unsure 06/18/2020 7:48 AM SALESFORCE SPECIALIST documented as of this encounter Plan of Treatment Not on file documented as of this encounter Procedures Procedure Name Priority Date/Time Associated Diagnosis Comments US MONITORING NST Routine 06/18/2020 9:06 AM SALESFORCE SPECIALIST Lsgxx-eai-vwbkd fetus, third trimester documented in this encounter Results * US MONITORING NST (06/18/2020 9:06 AM SALESFORCE SPECIALIST) Anatomical Region Laterality Modality Ultrasound 06/18/2020 8:10 AM SALESFORCE SPECIALIST Impressions 06/18/2020 9:04 AM SALESFORCE SPECIALIST IMPRESSION ----- Here today for testing secondary [...] will send to labor and delivery at [facility] for further evaluation to rule out labor and prolonged monitoring. Based on those findings will also determine further management such as delivery. Otherwise she will continue with her previously scheduled twice weekly testing along with weekly Doppler studies and interval growth ultrasound as previously scheduled. Narrative 06/18/2020 9:[address] [facility] NST ----- Pat. Name: ROSAURA BRADLEY Study Date: 06/18/2020 8:10am Pat. NO: [id number] Referring ??MD: LAZARO MAGUIRE MD Site: [place] Box Maker Wood: : 1995 Age: 24 ----- INDICATION ----- Growth Restriction (IUGR) Insufficient Care CODING ----- Diagnosis ? O36.5930: Maternal care for other known or suspected poor growth Unspecified Fetus ?O09.33: Supervision of with insufficient care ?Z3A.36: Weeks Gestation of Procedures ?81048: NST/ monitoring HISTORY ----- OB History ? 1. Para 0 MATERNAL ASSESSMENT ----- Physical Exam ? Weight 68 kg. BMI 27.62 kg/m?. Blood pressure 129 / 78 mmHg. Heart rate 100 bpm. METHOD ----- EFM ----- Goddard . [...] TEST ----- NST interpretation: reactive. Test duration 50 min. Baseline FHR 120 bpm. Baseline variability: moderate. Accelerations: Present. Decelerations: variable. Uterine activity: present, 7 contractions in 50 minutes COMMENT ----- Nursing notes: Patient reports + movement and no bleeding, or leaking. Pt feeling occasional contraction. [facility] specialist, Dr. Joy reviewed findings. Nurse spoke to Dr. Maguire's office about monitoring to rule out labor. Patient will go the the [facility] after US. Patient scheduled twice weekly; pt will have monitoring Thursday at [facility] this week. FOLLOW-UP ----- As noted above patient is to report to labor and delivery at [facility] and depending on those findings also [...] Procedure Note Darryl Avilez DO - 06/18/2020 [facility] ----- Pat. Name:Marissa BRADLEY Date:06/18/2020 8:10am Pat. NO: [id number] :LAZARO MAGUIRE MD Site:[place]: :1995Age:24 ----- INDICATION ----- Growth Restriction (IUGR) Insufficient Care CODING ----- Diagnosis O36.5930: Maternal care for other known orsuspected poor growth Unspecified Fetus O09.33: Supervision of with insufficientantenatal care Z3A.36: Weeks Gestation of Procedures 14258: NST/ monitoring HISTORY ----- OB History 1. Para 0 MATERNAL ASSESSMENT ----- Physical Exam Weight 68 kg. BMI 27.62 kg/m?. Blood yoywkbil793 / 78 mmHg. Heart rate 100 bpm. METHOD ----- EFM ----- Goddard . Number of fetuses: 1. DATING ----- Cycle:regular cycle GA by stated dating 36 w + 5 d NICOLE by stated dating :07/11/2020 Method of dating:Restore dating from previous exam Assigned:Dating performed on 03/28/2020, based on the externalassessment Assigned GA36 w + 5 d Assigned NICOLE:07/11/2020 NON STRESS TEST ----- NST interpretation: reactive. Test duration 50 min. Baseline FHR 120 bpm.Baseline variability: moderate. Accelerations: Present. Decelerations: variable. Uterine activity: present, 7 contractions in 50minutes COMMENT ----- Nursing notes: Patient reports + movement and no bleeding, orleaking. Pt feeling occasional contraction. [facility] specialist, Dr. Joy reviewed findings. Nurse spoke to Dr. Maguire's office aboutmonitoring to rule out labor. Patient will go the the [facility] after US. Patient scheduled twice weekly; pt will have monitoringFriday at [facility] this week. FOLLOW-UP ----- As noted above patient is to report to labor and delivery at [facility] and depending on those findings also determine [...] we will send to labor and delivery [facility] for further evaluation to rule out labor and prolonged monitoring. Based on those findings will alsodetermine further management such as delivery. Otherwise she will continue with her previously scheduled twice weekly fetaltesting along with weekly Doppler studies and interval growth ultrasound as previously scheduled. Lazaro Maguire MD US ORDERABLES documented in this encounter Visit Diagnoses Diagnosis Lgulv-zgn-eydvj fetus, third trimester documented in this encounter
--- OUTSIDE RECORDS SUMMARY | 2024-07-26 02:27 | XMS_ITS | Encounter Summary ---
Author Organization [facility] Address [address] [facility] [address] [facility] Attn: Epic Prelude ADT [place] [address] Care Team Providers Care Calibration Tester Name Role Phone Unavailable Primary Care Provider Unavailabl e Encounter Details Date Type Department Care Team (Latest Contact Info) Description 06/14/2020 Travel Social History Tobacco Use Types Packs/Day [...] COVID-19? No / Unsure 06/14/2020 8:20 AM DEPUTY COMMONWEALTH'S ATTORNEY documented as of this encounter Plan of Treatment Not on file documented as of this encounter Visit Diagnoses Not on filedocumented in this encounter
--- OUTSIDE RECORDS SUMMARY | 2024-07-26 02:27 | XMS_ITS | Encounter Summary ---
Author Organization [facility] Address [address] [facility] Attn: Epic Prelude ADT JANI EVANS [place]AH [address] Care Team Providers Care Mill Laborer Name Role Phone Unavailable Primary Care Provider Unavailabl e Encounter Details Date Type Department Care Team (Latest Contact Info) Description 05/24/2020 Travel Social History Tobacco Use Types Packs/Day [...]
--- OUTSIDE RECORDS SUMMARY | 2024-07-26 02:27 | XMS_ITS | Encounter Summary ---
Author Organization [facility] Address [address] [place] [address] Care Team Providers Care Machine Dyer Name Role Phone Unavailable Primary Care Provider Unavailabl e Reason for Referral * Radiology Services (Routine) - Closed Specialty Diagnoses / Procedures Referred By Contac t Referred To Contact Diagnoses Jbhuv-nef-zpvnt fetus, third trimester Procedures US OB LTD+UMB ART DOPPLER CHG DOPPLER UMBILICAL ARTERY CHG US, UTERUS,LIMITED, 1/> FETUSES Lazaro Maguire MD [address] [address] Referral ID Status Reason Start Date Expiration Date V isits Requested Visits Authorized [id number] Closed ST[facility] CTS 05/17/2020 06/17/2021 1 1 Reason for Visit * Radiology Services (Routine) - Closed Specialty Diagnoses / Procedures Referred By Contac t Referred To Contact Diagnoses Schnr-ccs-qwtcy fetus, third trimester Procedures US OB LTD+UMB ART DOPPLER CHG DOPPLER UMBILICAL ARTERY CHG US, UTERUS,LIMITED, 1/> FETUSES Lazaro Maguire MD [address] [address] Referral ID Status Reason Start Date Expiration Date V isits Requested Visits Authorized [id number] Closed STL CTS 05/17/2020 06/17/2021 1 1 Encounter Details Date Type Department Care Team (Latest Contact Info) Description 05/24/2020 10:00 AM CDT - 05/24/2020 11:59 PM CDT Hospital Encounter [facility] Maternal and [facility] [address] [place] [address] Lazaro Maguire MD [address] [place] [address] Discharge Disposition: Home or Self [...] Comments US OB LTD+UMB ART DOPPLER Routine 05/24/2020 10:33 AM CDT Ovhlu-rjo-jfwzv fetus, third trimester documented in this encounter Results * US OB LTD+UMB ART DOPPLER (05/24/2020 10:33 AM CDT) Anatomical Region Laterality Modality Pelvis Ultrasound 05/24/2020 10:1 8 AM CDT Impressions 05/24/2020 10:41 AM CDT IMPRESSION ----- 1. Goddard living fetus with a gestational age of 33w 1d, based on the reported clinical dates. 2. Amniotic fluid volume is normal for gestational age. 3. NST reactive and reassuring for gestational age. 4. Umbilical artery Doppler studies show normal placental resistance. Recommendations: 1. Twice weekly modified BPPs 2. Weekly umbilical artery Doppler studies 3. Growth sonograms at 3 week intervals Thank you for allowing us to participate in the care of this patient. Narrative 05/24/2020 10:41 AM CDT STL Limited ----- Pat. Name: ROSAURA BRADLEY Study Date: 05/24/2020 10:18am Pat. NO: [id number] Referring ??MD: LAZARO MAGUIRE MD Site: [place] [employer] Development Facilitator: Ca Frey : 1995 Age: 24 ----- INDICATION ----- IUGR-Intrauterine Growth Delay Insufficient Care CODING ----- Diagnosis ? O36.5995: Maternal care for other known or suspected poor growth Unspecified Fetus ?O09.33: Supervision of with insufficient care ?Z3A.33: Weeks Gestation of Procedures ?77418: Limited 1 or more - RAVEN, FHR, position ?87469: Umbilical Artery Doppler HISTORY ----- OB History [...] BIOMETRY ----- Other Structures Biometry: AF MVP ?6.6 ?cm ? RAVEN ? 17.9 ? cm ? 72% ? Hastings FHR ? 147 ?bpm ? GENERAL EVALUATION ----- Cardiac activity present. FHR 147 bpm. movements present. Presentation cephalic. Placenta Placental site: anterior. Umbilical cord Cord vessels: 3 vessel cord. Cord insertion: placental insertion: normal. Amniotic fluid Amount of AF: normal amount. MVP 6.6 cm. RAVEN 17.9 cm. Q1 6.6 cm, Q2 5.6 cm, Q3 1.8 cm, Q4 3.9 cm. ANATOMY ----- The following structures appear normal: Heart / Thorax ?Cardiac rhythm. Abdomen ? Stomach. Bladder. DOPPLER ----- Umbilical Artery: normal. PI ?0.94 ?62% ? Twyla RI ?0.65 ?73% ? Twyla PS ?63.80 ?cm/s ? 95% ? [place] ED ?22.20 ?cm/s ? S / D ? 2.87 ?66% ? Twyla COMMENT ----- Patient's name and date of were verified by the finance lecturer prior to the exam. Procedure Note Rock Mcmillan MD - 05/24/2020 [facility]L Limited ----- Name:Marissa BRADLEY Date:05/24/2020 10:18am Pat. NO: [id number] MD:LAZARO MAGUIRE MD [facility]Ca Frey :1995Age:24 ----- INDICATION ----- IUGR-Intrauterine Growth Delay Insufficient Care CODING ----- Diagnosis O36.5930: Maternal care for other known orsuspected poor growth Unspecified Fetus O09.33: Supervision of with insufficientantenatal care Z3A.33: Weeks Gestation of Procedures 79523: Limited 1 or more - RAVEN, FHR, position 00518: Umbilical Artery Doppler HISTORY ----- OB History [...] GA33 w + 1 d Assigned NICOLE:07/11/2020 BIOMETRY ----- Other Structures Biometry: AF MVP 6.6 cm RAVEN 17.9 cm72% Hastings FHR 147 bpm GENERAL EVALUATION ----- Cardiac activity present. FHR 147 bpm. movements present. Presentation cephalic. Placenta Placental site: anterior. Umbilical cord Cord vessels: 3 vessel cord. Cord insertion: placentalinsertion: normal. Amniotic fluid Amount of AF: normal amount. MVP 6.6 cm. RAVEN 17.9 cm. Q16.6 cm, Q2 5.6 cm, Q3 1.8 cm, Q4 3.9 cm. ANATOMY ----- The following structures appear normal: Heart / Thorax Cardiac rhythm. Abdomen Stomach. Bladder. DOPPLER ----- Umbilical Artery: normal. PI 0.9462% Twyla RI 0.6573% Twyla PS 63.80 cm/s95% [place] ED 22.20 cm/s S / D 2.8766% Twyla COMMENT ----- Patient's name and date of were verified by the finance lecturer prior tothe exam. IMPRESSION ----- 1. Goddard living fetus with a gestational age of 33w 1d, based on thereported clinical dates. 2. Amniotic fluid volume is normal for gestational age. 3. NST reactive and reassuring for gestational age. 4. Umbilical artery Doppler studies show normal placental resistance. Recommendations: 1. Twice weekly modified BPPs 2. Weekly umbilical artery Doppler studies 3. Growth sonograms at 3 week intervals Thank you for allowing us to participate in the care of this patient. Lazaro Maguire MD ORDERABLES documented in this encounter Visit Diagnoses Diagnosis Mffpa-ral-mfclj fetus, third trimester documented in this encounter
--- OUTSIDE RECORDS SUMMARY | 2024-07-26 02:27 | XMS_ITS | Clinical Summary ---
Author Organization [facility] Address [address] [place] [phone] Phone Care Team Providers Care Histology Technologist Name Role Phone Unavailable Primary Care Provider Unavailabl e Social History Tobacco Use Types Packs/Day Years Used Date Smoking Tobacco: Never Assessed Sex and Gender Information Value Date Recorded Sex Assigned at Not on file Gender Identity Not on file Sexual Orientation Not on file Plan of Treatment Health Maintenance Due Date Last Done Comments DTAP/TDAP/TD VACCINES (1 - Tdap) 10/21/2014 HEPATITIS B VACCINES (1 of 3 - 19+ 3-dose series) 10/21/2014 CERVICAL CANCER SCREENING 10/21/2016 INFLUENZA VACCINE (#1) 2024 HPV VACCINES Aged Out No longer eligi ble based on patient's age to complete this topic PNEUMOCOCCAL VACCINE 0-64 YEARS Aged Out No longer eligible based on patient's age to complete this topic
--- OUTSIDE RECORDS SUMMARY | 2024-07-26 02:27 | XMS_ITS | Encounter Summary ---
Author Organization [facility] Address [address] [facility] Attn: Epic Prelude ADT SARAH [place] [address] Care Team Providers Care Plant Custodian Name Role Phone Unavailable Primary Care Provider Unavailabl e Encounter Details Date Type Department Care Team (Latest Contact Info) Description 05/28/2020 Travel Social History Tobacco Use Types Packs/Day [...] COVID-19? No / Unsure 05/28/2020 7:25 AM PASTA PRESS OPERATOR documented as of this encounter Plan of Treatment Not on file documented as of this encounter Visit Diagnoses Not on filedocumented in this encounter
--- OUTSIDE RECORDS SUMMARY | 2024-07-26 02:27 | XMS_ITS | Encounter Summary ---
Author Organization [facility] Address [address] [place] [address] Care Team Providers Care Institutional Research Director Name Role Phone Unavailable Primary Care Provider Unavailabl e Reason for Referral * Radiology Services (Routine) - Closed Specialty Diagnoses / Procedures Referred By Contac t Referred To Contact Diagnoses Hlhuq-hyf-rjmmk fetus, third trimester Procedures US MONITORING Lazaro Garibay MD [address] [address] Referral ID Status Reason Start Date Expiration Date V isits Requested Visits Authorized [id number] Closed STL CTS 05/17/2020 06/17/2021 1 1 SDET Reason for Visit * Radiology Services (Routine) - Closed Specialty Diagnoses / Procedures Referred By Contac t Referred To Contact Diagnoses Vqnbh-tkn-hlemo fetus, third trimester Procedures US MONITORING TERESAT Lazaro Maguire MD [address] [address] Referral ID Status Reason Start Date Expiration Date V isits Requested Visits Authorized [id number] Closed STL CTS 05/17/2020 06/17/2021 1 1 Encounter Details Date Type Department Care Team (Latest Contact Info) Description 05/31/2020 8:15 AM JAVA SDET - 05/31/2020 11:59 PM JAVA SDET Hospital Encounter [facility] Maternal and Health [facility] [address] [place] [address] Lazaro Maguire MD [address] [address] Discharge Disposition: Home or Self [...] COVID-19? No / Unsure 05/31/2020 8:42 AM JAVA SDET documented as of this encounter Plan of Treatment Not on file documented as of this encounter Procedures Procedure Name Priority Date/Time Associated Diagnosis Comments US MONITORING NST Routine 05/31/2020 9:36 AM JAVA SDET Ogeqg-meh-oejkg fetus, third trimester documented in this encounter Results * US MONITORING NST (05/31/2020 9:36 AM JAVA SDET) Anatomical Region Laterality Modality Ultrasound 05/31/2020 8:47 AM JAVA SDET Impressions 05/31/2020 9:15 AM JAVA SDET IMPRESSION ----- NST reactive Narrative 05/31/2020 9:[address] [facility] NST ----- Pat. Name: ROSAURA BRADLEY Study Date: 05/31/2020 8:47am Pat. NO: [id number] Referring ??: LAZARO MAGUIRE MD Site: [place] [employer] Attendant: : 1995 Age: 24 ----- INDICATION ----- Growth Restriction (IUGR) Insufficient Care CODING ----- Diagnosis ? O36.5930: Maternal care for other known or suspected poor growth Unspecified Fetus ?O09.33: Supervision of with insufficient care ?Z3A.34: Weeks Gestation of Procedures ?52433: NST/ monitoring HISTORY ----- OB History ? 1. Para 0 MATERNAL ASSESSMENT ----- Physical Exam ? Weight 64 kg. BMI 25.61 kg/m?. Blood pressure 126 / 75 mmHg. Heart rate 104 bpm. METHOD ----- EFM ----- Goddard . [...] TEST ----- NST interpretation: reactive. Test duration 28 min. Baseline FHR 120 bpm. Baseline variability: moderate. Accelerations: Present. Decelerations: absent. Uterine activity: absent COMMENT ----- Nursing notes: Patient reports + movement and no bleeding, leaking or bob. Patient scheduled twice weekly. To US now for BFS. Procedure Note Viktor Carlson MD - 05/31/[facility] NST ----- Pat. Name:Marissa BRADLEY Date:05/31/2020 8:47am Pat. NO: [id number] :LAZARO MAGUIRE MD [place]1995Age:24 ----- INDICATION ----- Growth Restriction (IUGR) Insufficient Care CODING ----- Diagnosis O36.5930: Maternal care for other known orsuspected poor growth Unspecified Fetus O09.33: Supervision of with insufficientantenatal care Z3A.34: Weeks Gestation of Procedures 57482: NST/ monitoring HISTORY ----- OB History 1. Para 0 MATERNAL ASSESSMENT ----- Physical Exam Weight 64 kg. BMI 25.61 kg/m?. Blood taifpwrg732 / 75 mmHg. Heart rate 104 bpm. METHOD ----- EFM ----- Goddard . Number of fetuses: 1. DATING ----- Cycle:regular cycle GA by stated dating 34 w + 1 d NICOLE by stated dating :07/11/2020 Method of dating:Restore dating from previous exam Assigned:Dating performed on 03/28/2020, based on the externalassessment Assigned GA34 w + 1 d Assigned NICOLE:07/11/2020 NON STRESS TEST ----- NST interpretation: reactive. Test duration 28 min. Baseline FHR 120 bpm.Baseline variability: moderate. Accelerations: Present. Decelerations: absent. Uterine activity: absent COMMENT ----- Nursing notes: Patient reports + movement and no bleeding, leakingor bob. Patient scheduled twice weekly. To US now for BFS. IMPRESSION ----- NST reactive Lazaro Maguire MD ORDERABLES documented in this encounter Visit Diagnoses Diagnosis Ecwcc-qtr-shfxc fetus, third trimester documented in this encounter
--- OUTSIDE RECORDS SUMMARY | 2024-07-26 02:27 | XMS_ITS | Encounter Summary ---
Author Organization [facility] Address [address] [facility] Attn: Epic Prelude ADT SARAH [place] [address] Care Team Providers Care Intelligence Support Officer Name Role Phone Unavailable Primary Care Provider Unavailabl e Encounter Details Date Type Department Care Team (Latest Contact Info) Description 06/25/2020 Travel Social History Tobacco Use Types Packs/Day [...] COVID-19? No / Unsure 06/25/2020 1:51 PM SACK DEPARTMENT SUPERVISOR documented as of this encounter Plan of Treatment Not on file documented as of this encounter Visit Diagnoses Not on filedocumented in this encounter
--- OUTSIDE RECORDS SUMMARY | 2024-07-26 02:27 | XMS_ITS | Encounter Summary ---
Author Organization [facility] Address [address] [place] [address] Care Team Providers Care District Adviser Name Role Phone Unavailable Primary Care Provider Unavailabl e Reason for Referral * Radiology Services (Routine) - Closed Specialty Diagnoses / Procedures Referred By Contac t Referred To Contact Diagnoses Iupxy-odx-cpika fetus, third trimester Procedures US OB LIMITED + NST AK NON-STRESS TEST CHG US, UTERUS,LIMITED, 1/> FETUSES Lazaro Maguire MD [address] [address] Referral ID Status Reason Start Date Expiration Date V isits Requested Visits Authorized [id number] Closed STL CTS 06/08/2020 09/16/2020 1 1 T STAFF Reason for Visit * Radiology Services (Routine) - Closed Specialty Diagnoses / Procedures Referred By Contac t Referred To Contact Diagnoses Jgips-fqp-clltl fetus, third trimester Procedures US OB LIMITED + NST AK NON-STRESS TEST CHG US, UTERUS,LIMITED, 1/> FETUSES Lazaro Maguire MD [address] [address] Referral ID Status Reason Start Date Expiration Date V isits Requested Visits Authorized [id number] Closed STL CTS 06/08/2020 09/16/2020 1 1 Encounter Details Date Type Department Care Team (Latest Contact Info) Description 06/11/2020 7:22 AM EVENT STAFF - 06/11/2020 11:59 PM EVENT STAFF Hospital Encounter [facility] Maternal and [facility] [address] [place] [address] Lazaro Maguire MD [address] [place] [address] Discharge Disposition: Home or Self [...] COVID-19? No / Unsure 06/11/2020 7:21 AM EVENT STAFF documented as of this encounter Plan of Treatment Not on file documented as of this encounter Procedures Procedure Name Priority Date/Time Associated Diagnosis Comments US OB LIMITED + NST Routine 06/11/2020 8 :46 AM EVENT STAFF Rbqle-cuu-fnilx fetus, third trimester documented in this encounter Results * US OB LIMITED + NST (06/11/2020 8:46 AM EVENT STAFF) Anatomical Region Laterality Modality Pelvis Ultrasound 06/11/2020 7:24 AM EVENT STAFF Impressions 06/11/2020 8:30 AM EVENT STAFF IMPRESSION ----- 1. Goddard living fetus with a gestational age of 35 w 5 d, based on the reported clinical dates. 2. Amniotic fluid volume is normal for gestational age. 3. NST reactive and reassuring for gestational age. Recommendations: - Continue current surveillance plan. - Daily kick counts are encouraged Thank you for allowing us to participate in the care of this patient. Narrative 06/11/2020 8:30 AM EVENT STAFF Modified BPP Study ----- Pat. Name: ROSAURA BRADLEY Study Date: 06/11/2020 7:24am Pat. NO: [id number] Referring ??MD: LAZARO MAGUIRE MD Site: [place] Diamond Powder Mixer: : 1995 Age: 24 ----- INDICATION ----- Growth Restriction (IUGR) Insufficient Care CODING ----- Diagnosis ? O36.5930: Maternal care for other known or suspected poor growth Unspecified Fetus ?O09.33: Supervision of with insufficient care ?Z3A.35: Weeks Gestation of Procedures ?15039: NST/ monitoring ?26191: Limited 1 or more - RAVEN, FHR, position (modifier 59 for MBPP) HISTORY ----- OB History ? 1. Para 0 MATERNAL ASSESSMENT ----- Physical Exam ? Weight 68 kg. BMI 27.62 kg/m?. Blood pressure 120 / 77 mmHg. Heart rate 111 bpm. METHOD ----- EFM, Transabdominal ultrasound examination ----- Goddard . Number of fetuses: 1. DATING ----- Cycle: regular cycle GA by stated dating 35 w + 5 d NICOLE by stated dating : 07/11/2020 Method of dating: Restore dating from previous exam Assigned: Dating performed on 03/28/2020, based on the external assessment Assigned GA 35 w + 5 d Assigned NICOLE: 07/11/2020 GENERAL EVALUATION ----- Cardiac activity present. Presentation cephalic. NON STRESS TEST ----- NST interpretation: reactive. Test duration 40 min. Baseline FHR 130 bpm. Baseline variability: moderate. Accelerations: Present. Decelerations: absent. Uterine activity: absent AMNIOTIC FLUID ASSESSMENT ----- Amount of AF: normal amount MVP 6.0 cm. RAVEN 12.5 cm. Q1 1.4 cm, Q2 6.0 cm, Q3 5.1 cm, Q4 0.0 cm COMMENT ----- Nurses Notes: Patient reports + movement and no bleeding, leaking of fluid or bob. M specialist, Dr. Stark, reviewed findings prior to discharge. Patient scheduled twice weekly. Procedure Note Vandana Stark MD - 06/11/2020 Modified BPP Study ----- Pat. Name:Marissa BRADLEY Date:06/11/2020 7:24am Pat. NO: [id number] MD:LAZARO MAGUIRE MD Site:[facility]: :1995Age:24 ----- INDICATION ----- Growth Restriction (IUGR) Insufficient Care CODING ----- Diagnosis O36.5930: Maternal care for other known orsuspected poor growth Unspecified Fetus O09.33: Supervision of with insufficientantenatal care Z3A.35: Weeks Gestation of Procedures 14639: NST/ monitoring 85540: Limited 1 or more - RAVEN, FHR, position(modifier 59 for MBPP) HISTORY ----- OB History 1. Para 0 MATERNAL ASSESSMENT ----- Physical Exam Weight 68 kg. BMI 27.62 kg/m?. Blood jtodzewr462 / 77 mmHg. Heart rate 111 bpm. METHOD ----- EFM, Transabdominal ultrasound examination ----- Goddard . Number of fetuses: 1. DATING ----- Cycle:regular cycle GA by stated dating 35 w + 5 d NICOLE by stated dating :07/11/2020 Method of dating:Restore dating from previous exam Assigned:Dating performed on 03/28/2020, based on the externalassessment Assigned GA35 w + 5 d Assigned NICOLE:07/11/2020 GENERAL EVALUATION ----- Cardiac activity present. Presentation cephalic. NON STRESS TEST ----- NST interpretation: reactive. Test duration 40 min. Baseline FHR 130 bpm.Baseline variability: moderate. Accelerations: Present. Decelerations: absent. Uterine activity: absent AMNIOTIC FLUID ASSESSMENT ----- Amount of AF: normal amount MVP 6.0 cm. RAVEN 12.5 cm. Q1 1.4 cm, Q2 6.0 cm, Q3 5.1 cm, Q4 0.0 cm COMMENT ----- Nurses Notes: Patient reports + movement and no bleeding, leaking offluid or bob. M specialist, Dr. Stark, reviewed findings prior to discharge. Patient scheduled twice weekly. IMPRESSION ----- 1. Goddard living fetus with a gestational age of 35 w 5 d, based on thereported clinical dates. 2. Amniotic fluid volume is normal for gestational age. 3. NST reactive and reassuring for gestational age. Recommendations: - Continue current surveillance plan. - Daily kick counts are encouraged Thank you for allowing us to participate in the care of this patient. Lazaro Maguire MD US ORDERABLES documented in this encounter Visit Diagnoses Diagnosis Hpreu-ccj-lhgaf fetus, third trimester documented in this encounter
--- OUTSIDE RECORDS SUMMARY | 2024-07-26 02:27 | XMS_ITS | Encounter Summary ---
Author Organization [facility] Address [address] [facility] Attn: Epic Prelude ADT JANI EVANS SARAH [address] Care Team Providers Care Engineering Supervisor Name Role Phone Unavailable Primary Care Provider Unavailabl e Encounter Details Date Type Department Care Team (Latest Contact Info) Description 05/31/2020 Travel Social History Tobacco Use Types Packs/Day [...] COVID-19? No / Unsure 05/31/2020 8:42 AM CAR SALESMAN documented as of this encounter Plan of Treatment Not on file documented as of this encounter Visit Diagnoses Not on filedocumented in this encounter
--- OUTSIDE RECORDS SUMMARY | 2024-07-26 02:27 | XMS_ITS | Encounter Summary ---
Author Organization [facility] Address [address] [place] [address] Care Team Providers Care Classics Professor Name Role Phone Unavailable Primary Care Provider Unavailabl e Reason for Referral * Radiology Services (Routine) - Closed Specialty Diagnoses / Procedures Referred By Contac t Referred To Contact Diagnoses Hmqak-aou-qpqxv fetus, third trimester Procedures US OB LIMITED + NST HI NON-STRESS TEST CHG US, UTERUS,LIMITED, 1/> FETUSES Lazaro Maguire MD [address] [address] Referral ID Status Reason Start Date Expiration Date V isits Requested Visits Authorized [id number] Closed STL CTS 05/18/2020 08/18/2020 1 1 Reason for Visit * Radiology Services (Routine) - Closed Specialty Diagnoses / Procedures Referred By Contac t Referred To Contact Diagnoses Fwvqc-chl-ijxnr fetus, third trimester Procedures US OB LIMITED + NST HI NON-STRESS TEST CHG US, UTERUS,LIMITED, 1/> FETUSES Lazaro Maguire MD [address] [address] Referral ID Status Reason Start Date Expiration Date V isits Requested Visits Authorized [id number] Closed STL CTS 05/18/2020 08/18/2020 1 1 Encounter Details Date Type Department Care Team (Latest Contact Info) Description 05/21/2020 7:25 AM CDT - 05/21/2020 11:59 PM CDT Hospital Encounter [facility]aternal and [facility] [address] [place] [address] Lazaro Maguire MD [address] [place] [address] Discharge Disposition: Home or Self [...] have Coronavirus / COVID-19? No / Unsure 05/21/2020 7:25 AM CDT documented as of this encounter Plan of Treatment Not on file documented as of this encounter Procedures Procedure Name Priority Date/Time Associated Diagnosis Comments US OB LIMITED + NST Routine 05/21/2020 9 :29 AM CDT Jnrdp-pwu-vfohy fetus, third trimester documented in this encounter Results * US OB LIMITED + NST (05/21/2020 9:29 AM CDT) Anatomical Region Laterality Modality Pelvis Ultrasound 05/21/2020 7:28 AM CDT Impressions 05/21/2020 8:51 AM CDT IMPRESSION ----- 1. Goddard living fetus with a gestational age of 32w 5d, based on the reported clinical dates. 2. Amniotic fluid volume is normal for gestational age. 3. NST reactive and reassuring for gestational age. Recommendations: - Continue current surveillance plan. Thank you for allowing us to participate in the care of this patient. Narrative 05/21/2020 8:51 AM CDT Modified BPP Study ----- Pat. Name: ROSAURA BRADLEY Study Date: 05/21/2020 7:28am Pat. NO: [id number] Referring ??MD: LAZARO MAGUIRE MD Site: [place] Supervisor Prop Making: : 1995 Age: 24 ----- INDICATION ----- Insufficient Care Small for Dates CODING ----- Diagnosis ? O09.33: Supervision of with insufficient care ?O36.5947: Maternal care for other known or suspected poor growth Unspecified Fetus ?Z3A.32: Weeks Gestation of Procedures ?13208: NST/ monitoring ?41006: Limited 1 or more - RAVEN, FHR, position (modifier 59 for MBPP) HISTORY ----- OB History ? 1. Para 0 MATERNAL ASSESSMENT ----- Physical Exam ? Weight 64 kg. BMI 25.61 kg/m?. Blood pressure 125 / 72 mmHg. Heart rate 110 bpm. METHOD ----- EFM, Transabdominal ultrasound examination ----- Goddard . Number of fetuses: 1. DATING ----- Cycle: regular cycle GA by stated dating 32 w + 5 d NICOLE by stated dating : 07/11/2020 Method of dating: Restore dating from previous exam Assigned: Dating performed on 03/28/2020, based on the external assessment Assigned GA 32 w + 5 d Assigned NICOLE: 07/11/2020 GENERAL EVALUATION ----- Cardiac activity present. Presentation cephalic. NON STRESS TEST ----- NST interpretation: reactive. Test duration 30 min. Baseline FHR 125 bpm. Baseline variability: moderate. Accelerations: Present. Decelerations: absent. Uterine activity: absent AMNIOTIC FLUID ASSESSMENT ----- Amount of AF: normal amount MVP 6.6 cm. RAVEN 14.7 cm. Q1 6.6 cm, Q2 4.1 cm, Q3 0.0 cm, Q4 4.1 cm COMMENT ----- Nurses Notes: Patient reports + movement and no bleeding, leaking of fluid or bob. Patient scheduled twice weekly. Procedure Note Rock Mcmillan MD - 05/21/2020 Modified BPP Study ----- Pat. Name:Marissa BRADLEY Date:05/21/2020 7:28am Pat. NO: [id number] :LAZARO MAGUIRE MD Site:[place]ographer: :1995Age:24 ----- INDICATION ----- Insufficient Care Small for Dates CODING ----- Diagnosis O09.33: Supervision of with insufficientantenatal care O36.7011: Maternal care for other known orsuspected poor growth Unspecified Fetus Z3A.32: Weeks Gestation of Procedures 89736: NST/ monitoring 43999: Limited 1 or more - RAVEN, FHR, position(modifier 59 for MBPP) HISTORY ----- OB History 1. Para 0 MATERNAL ASSESSMENT ----- Physical Exam Weight 64 kg. BMI 25.61 kg/m?. Blood [id number] / 72 mmHg. Heart rate 110 bpm. METHOD ----- EFM, Transabdominal ultrasound examination ----- [place]dard . Number of fetuses: 1. DATING ----- Cycle:regular cycle GA by stated dating 32 w + 5 d NICOLE by stated dating :07/11/2020 Method of dating:Restore dating from previous exam Assigned:Dating performed on 03/28/2020, based on the externalassessment Assigned GA32 w + 5 d Assigned NICOLE:07/11/2020 GENERAL EVALUATION ----- Cardiac activity present. Presentation cephalic. NON STRESS TEST ----- NST interpretation: reactive. Test duration 30 min. Baseline FHR 125 bpm.Baseline variability: moderate. Accelerations: Present. Decelerations: absent. Uterine activity: absent AMNIOTIC FLUID ASSESSMENT ----- Amount of AF: normal amount MVP 6.6 cm. RAVEN 14.7 cm. Q1 6.6 cm, Q2 4.1 cm, Q3 0.0 cm, Q4 4.1 cm COMMENT ----- Nurses Notes: Patient reports + movement and no bleeding, leaking offluid or bob. Patient scheduled twice weekly. IMPRESSION ----- 1. Goddard living fetus with a gestational age of 32w 5d, based on thereported clinical dates. 2. Amniotic fluid volume is normal for gestational age. 3. NST reactive and reassuring for gestational age. Recommendations: - Continue current surveillance plan. Thank you for allowing us to participate in the care of this patient. Lazaro Maguire MD US ORDERABLES documented in this encounter Visit Diagnoses Diagnosis Aybgg-vrz-ellne fetus, third trimester documented in this encounter
--- OUTSIDE RECORDS SUMMARY | 2024-07-26 02:27 | XMS_ITS | Encounter Summary ---
Author Organization [facility] Address [address] [facility] Attn: Epic Prelude ADT [place] [address] Care Team Providers Care Frame Trimmer Name Role Phone Unavailable Primary Care Provider Unavailabl e Encounter Details Date Type Department Care Team (Latest Contact Info) Description 06/07/2020 Travel Social History Tobacco Use Types Packs/Day [...] COVID-19? No / Unsure 06/07/2020 1:00 PM NEWSPAPER PHOTOJOURNALIST documented as of this encounter Plan of Treatment Not on file documented as of this encounter Visit Diagnoses Not on filedocumented in this encounter
--- OUTSIDE RECORDS SUMMARY | 2024-07-26 02:27 | XMS_ITS | Encounter Summary ---
Author Organization [facility] Address [address] [place] [address] Care Team Providers Care Ticket Agent Name Role Phone Unavailable Primary Care Provider Unavailabl e Reason for Referral * Radiology Services (Routine) - Closed Specialty Diagnoses / Procedures Referred By Contac t Referred To Contact Diagnoses Oalmr-oym-cpyuh fetus, third trimester Procedures US OB FOLLOW UP + UMB ART CHG US, UTERUS,F/U,TRANSABD JACKSON CHG DOPPLER UMBILICAL ARTERY Lazaro Maguire MD [address] [address] Referral ID Status Reason Start Date Expiration Date V isits Requested Visits Authorized [id number] Closed STL CTS 06/18/2020 07/19/2021 1 1 UTER ANALYST Reason for Visit * Radiology Services (Routine) - Closed Specialty Diagnoses / Procedures Referred By Contac t Referred To Contact Diagnoses Bobwf-xxn-jjhwe fetus, third trimester Procedures US OB FOLLOW UP + UMB ART CHG US, UTERUS,F/U,TRANSABD JACKSON CHG DOPPLER UMBILICAL ARTERY Lazaro Maguire MD [address] [address] Referral ID Status Reason Start Date Expiration Date V isits Requested Visits Authorized [id number] Closed STL CTS 06/18/2020 07/19/2021 1 1 Encounter Details Date Type Department Care Team (Latest Contact Info) Description 06/25/2020 1:51 PM COMPUTER ANALYST - 06/25/2020 11:59 PM COMPUTER ANALYST Hospital Encounter [facility] Maternal and [facility] [address] [place] [address] Lazaro Maguire MD [address] [place] [address] Discharge Disposition: Home or Self [...] COVID-19? No / Unsure 06/25/2020 1:51 PM COMPUTER ANALYST documented as of this encounter Plan of Treatment Not on file documented as of this encounter Procedures Procedure Name Priority Date/Time Associated Diagnosis Comments US OB FOLLOW UP + UMB ART Routine 06/25/2020 2:11 PM COMPUTER ANALYST Hgumy-fwz-tmdas fetus, third trimester documented in this encounter Results * US OB FOLLOW UP + UMB ART (06/25/2020 2:11 PM COMPUTER ANALYST) Anatomical Region Laterality Modality Pelvis Ultrasound 06/25/2020 1:55 PM COMPUTER ANALYST Impressions 06/25/2020 4:16 PM COMPUTER ANALYST IMPRESSION ----- Here today for interval growth ultrasound and testing with Doppler study secondary to suspected IUGR. She had no complaints and reported good movements. The biometry showing interval growth however the estimated weight is a 5th percentile with AC at the 18th percentile all other measurements are lagging. This is suspected for SGA. There continues to be linear growth for 436 g since the last study. The amniotic fluid is normal RAVEN is 13.5 with MVP 4.1 cm. Good movements were noted. The umbilical artery Doppler studies show normal S/D ratio. Ultrasound does have its limitations in detecting all congenital anomalies. Case also discussed with Dr. Maguire concerning timing of delivery which is recommended at 38-39 weeks. Narrative 06/25/2020 4:16 PM COMPUTER ANALYST STL Follow Up ----- Pat. Name: ROSAURA BRADLEY Study Date: 06/25/2020 1:55pm Pat. NO: [id number] Referring ??MD: LAZARO MAGUIRE MD Site: [place] [facility] Thresher: Ca Frey : 1995 Age: 24 ----- INDICATION ----- IUGR-Intrauterine Growth Delay Insufficient Care CODING ----- Diagnosis ? O36.5930: Maternal care for other known or suspected poor growth Unspecified Fetus ?O09.33: Supervision of with insufficient care ?Z3A.37: Weeks Gestation of Procedures ?08603: OB follow-up/Target per fetus ?53549: Umbilical Artery Doppler HISTORY ----- OB History ? 1. Para 0 MATERNAL ASSESSMENT ----- Physical Exam ? Weight 64 kg. BMI 25.61 kg/m?. METHOD ----- Transabdominal ultrasound examination ----- [place]dard . Number of fetuses: 1. DATING ----- Cycle: regular cycle GA by stated dating 37 w + 5 d NICOLE by stated dating : 07/11/2020 Ultrasound examination on: 06/25/2020 GA by U/S based upon: AC, BPD, EFW, Femur, HC GA by U/S 34 w + 2 d NICOLE by U/S: 08/04/2020 Method of dating: Restore dating from previous exam Assigned: Dating performed on 03/28/2020, based on the external assessment Assigned GA 37 w + 5 d Assigned NICOLE: 07/11/2020 BIOMETRY ----- Main Biometry: BPD ? 84.9 ? mm ? 34w 1d ?2% ?Hadlock HC ?311.9 ?mm ? 34w 6d ?<1% ? Hadlock AC ?320.0 ?mm ? 35w 6d ?18% ? Hadlock Femur ? 61.9 ? mm ? 32w 1d ?<1% ? Hadlock Humerus ? 56.3 ? mm ? 32w 5d ?<1% ? Ham HC / AC ? 0.97 ?28% ? Nicolaides Weight Calculation: EFW ? 2,479 ?g ?34w 3d ?5% ?Hadlock EFW (lb,oz) ? 5 lb 7 ? oz EFW by ? Hadlock ([id number]) Extremities / Bony Struc Biometry: FL / BPD ?0.73 ? FL / AC ? 0.19 ? Other Structures Biometry: AF MVP ?4.1 ?cm ? RAVEN ? 13.5 ? cm ? 51% ? Hastings FHR ? 138 ?bpm ? GENERAL EVALUATION ----- Cardiac activity present. FHR 138 bpm. movements present. Presentation cephalic. Placenta Placental site: anterior. no previa. Umbilical cord Cord vessels: 3 vessel cord. Amniotic fluid Amount of AF: normal amount. MVP 4.1 cm. RAVEN 13.5 cm. Q1 4.0 cm, Q2 2.8 cm, Q3 4.1 cm, Q4 2.6 cm. DOPPLER ----- Umbilical Artery: normal. PI ?1.04 ?89% ? Twyla RI ?0.63 ?81% ? Twyla PS ?60.40 ?cm/s ? 83% ? Ebbing ED ?22.40 ?cm/s ? S / D ? 2.70 ?73% ? Twyla ANATOMY ----- The following structures appear normal: Head / Neck ? Cranium. Heart / Thorax ?4-chamber view. ?Diaphragm. Abdomen ? Stomach. Kidneys. Bladder. COMMENT ----- Patient's name and date of were verified by the job coach/job developer prior to the exam FOLLOW-UP ----- She is to continue with twice-weekly testing along with weekly Doppler studies until delivery. Recommend delivery at 38-39 weeks. Labor precautions along with kick counts Thank you for allowing us to partake in your patient's care. Procedure Note Darryl Avilez DO - 06/25/2020 ST Follow Up ----- Pat. Name:Melecio BRADLEYmuriel Date:06/25/2020 1:55pm Pat. NO: [id number] :LAZARO MAGUIRE MD Site:[place]:Ca Frey :1995Age:24 ----- INDICATION ----- IUGR-Intrauterine Growth Delay Insufficient Care CODING ----- Diagnosis O36.5930: Maternal care for other known orsuspected poor growth Unspecified Fetus O09.33: Supervision of with insufficientantenatal care Z3A.37: Weeks Gestation of Procedures 40228: OB follow-up/Target per fetus 62869: Umbilical Artery Doppler HISTORY ----- OB History 1. Para 0 MATERNAL ASSESSMENT ----- Physical Exam Weight 64 kg. BMI 25.61 kg/m?. METHOD ----- Transabdominal ultrasound examination ----- [place]ard . Number of fetuses: 1. DATING ----- Cycle:regular cycle GA by stated dating 37 w + 5 d NICOLE by stated dating :07/11/2020 Ultrasound examination on:06/25/2020 GA by U/S based upon:AC, BPD, EFW, Femur, HC GA by U/S34 w + 2 d NICOLE by U/S:08/04/2020 Method of dating:Restore dating from previous exam Assigned:Dating performed on 03/28/2020, based on the externalassessment Assigned GA37 w + 5 d Assigned NICOLE:07/11/2020 BIOMETRY ----- Main Biometry: BPD 84.9 mm 34w 1d 2%Hadlock HC 311.9 mm 34w 6d<1% Hadlock AC 320.0 mm 35w 6d18% Hadlock Femur 61.9 mm 32w 1d<1% Hadlock Humerus 56.3 mm 32w 5d<1% Ham HC / AC 0.9728% Nicolaides Weight Calculation: EFW 2,479 g 34w 3d 5%Hadlock EFW (lb,oz) 5 lb 7 oz EFW by Hadlock ([id number]) Extremities / Bony Struc Biometry: FL / BPD 0.73 FL / AC 0.19 Other Structures Biometry: AF MVP 4.1 cm RAVEN 13.5 cm51% Hastings FHR 138 bpm GENERAL EVALUATION ----- Cardiac activity present. FHR 138 bpm. movements present. Presentation cephalic. Placenta Placental site: anterior. no previa. Umbilical cord Cord vessels: 3 vessel cord. Amniotic fluid Amount of AF: normal amount. MVP 4.1 cm. RAVEN 13.5 cm. Q14.0 cm, Q2 2.8 cm, Q3 4.1 cm, Q4 2.6 cm. DOPPLER ----- Umbilical Artery: normal. PI 1.0489% Twyla RI 0.6381% Twyla PS 60.40 cm/s83% Ebbing ED 22.40 cm/s S / D 2.7073% Twyla ANATOMY ----- The following structures appear normal: Head / Neck Cranium. Heart / Thorax 4-chamber view. Diaphragm. Abdomen Stomach. Kidneys. Bladder. COMMENT ----- Patient's name and date of were verified by the job coach/job developer prior tothe exam FOLLOW-UP ----- She is to continue with twice-weekly testing along withweekly Doppler studies until delivery. Recommend delivery at 38-39 weeks. Labor precautions along with kick counts Thank you for allowing us to partake in your patient's care. IMPRESSION ----- Here today for interval growth ultrasound and fetaltesting with Doppler study secondary to suspected IUGR. She had no complaints and reported good movements. The biometry showing interval growth however the estimated weight jonathan 5th percentile with AC at the 18th percentile all other measurements are lagging. This is suspected for SGA. There continuesto be linear growth for 436 g since the last study. The amniotic fluid is normal RAVEN is 13.5 with MVP 4.1 cm. Good fetalmovements were noted. The umbilical artery Doppler studies show normal S/D ratio. Ultrasound does have its limitations in detecting all congenitalanomalies. Case also discussed with Dr. Maguire concerning timing of delivery which isrecommended at 38-39 weeks. Lazaro Maguire MD US ORDERABLES documented in this encounter Visit Diagnoses Diagnosis Ujlwe-dgv-aunge fetus, third trimester documented in this encounter
--- OUTSIDE RECORDS SUMMARY | 2024-07-26 02:27 | XMS_ITS | Encounter Summary ---
Author Organization [facility] Address [address] [facility] Attn: Epic Prelude ADT [place] [address] Care Team Providers Care Spray Dyer Name Role Phone Unavailable Primary Care Provider Unavailabl e Encounter Details Date Type Department Care Team (Latest Contact Info) Description 05/21/2020 Travel Social History Tobacco Use Types Packs/Day [...]
--- OUTSIDE RECORDS SUMMARY | 2024-07-26 02:27 | XMS_ITS | Encounter Summary ---
Author Organization [facility] Address [address] [facility] Attn: Epic Prelude ADT JANI EVANS SARAH [address] Care Team Providers Care Supervisor Type Disk Quality Control Name Role Phone Unavailable Primary Care Provider Unavailabl e Encounter Details Date Type Department Care Team (Latest Contact Info) Description 06/04/2020 Travel Social History Tobacco Use Types Packs/Day [...] COVID-19? No / Unsure 06/04/2020 7:23 AM HOSPITAL AIDES AND ASSISTANTS TEACHER documented as of this encounter Plan of Treatment Not on file documented as of this encounter Visit Diagnoses Not on filedocumented in this encounter
--- OUTSIDE RECORDS SUMMARY | 2024-07-26 02:27 | XMS_ITS | Encounter Summary ---
Author Organization [facility] Address [address] [place] [address] Care Team Providers Care Field Sales Consultant Name Role Phone Unavailable Primary Care Provider Unavailabl e Reason for Referral * Radiology Services (Routine) - Closed Specialty Diagnoses / Procedures Referred By Contac t Referred To Contact Diagnoses Xwmxm-cmy-dhbmy fetus, third trimester Procedures US OB FOLLOW UP + UMB ART CHG US, UTERUS,F/U,TRANSABD JACKSON CHG DOPPLER UMBILICAL ARTERY Lazaro Maguire MD [address] [address] Referral ID Status Reason Start Date Expiration Date V isits Requested Visits Authorized [id number] Closed STL CTS 05/18/2020 08/18/2020 1 1 EZER OPERATOR Reason for Visit * Radiology Services (Routine) - Closed Specialty Diagnoses / Procedures Referred By Contac t Referred To Contact Diagnoses Awqzk-llc-izfog fetus, third trimester Procedures US OB FOLLOW UP + UMB ART CHG US, UTERUS,F/U,TRANSABD JACKSON CHG DOPPLER UMBILICAL ARTERY Lazaro Maguire MD [address] [address] Referral ID Status Reason Start Date Expiration Date V isits Requested Visits Authorized [id number] Closed STL CTS 05/18/2020 08/18/2020 1 1 Encounter Details Date Type Department Care Team (Latest Contact Info) Description 06/07/2020 1:24 PM SQUEEZER OPERATOR - 06/07/2020 11:59 PM SQUEEZER OPERATOR Hospital Encounter [facility] [address] [place] [address] Lazaro Maguire MD [address] [place] [address] Discharge Disposition: Home or Self [...] COVID-19? No / Unsure 06/07/2020 1:00 PM SQUEEZER OPERATOR documented as of this encounter Plan of Treatment Not on file documented as of this encounter Procedures Procedure Name Priority Date/Time Associated Diagnosis Comments US OB FOLLOW UP + UMB ART Routine 06/07/2020 1:57 PM SQUEEZER OPERATOR Flcuz-mpx-kdeaw fetus, third trimester documented in this encounter Results * US OB FOLLOW UP + UMB ART (06/07/2020 1:57 PM SQUEEZER OPERATOR) Anatomical Region Laterality Modality Pelvis Ultrasound 06/07/2020 1:32 PM SQUEEZER OPERATOR Addenda Addendum by Vandana Stark MD on 06/08/2020 4:28 PM SQUEEZER OPERATOR ADDENDUM fix procedure codes Impressions 06/07/2020 2:01 PM SQUEEZER OPERATOR IMPRESSION ----- 1. Single living fetus with a gestational age of 35 w 1 d, based on the reported clinical dates. 2. Current growth parameters are consistent with the stated EDC. The size is small for gestational age at the 5th percentile. There has been adequate growth and AC is at the 23rd. 3. Unremarkable limited anatomy noted. A detailed anatomy cannot be performed secondary to advanced gestational age. However, there are no gross structural abnormalities noted. 4. The amniotic fluid is normal for gestational age. 5. Umbilical artery Dopplers are normal. Recommendations: - Repeat growth surveillance in 3 week if undelivered. - Twice weekly testing with one weekly UA Dopplers Thank you for allowing us to participate in the care of this patient. Narrative 06/07/2020 2:01 PM SQUEEZER OPERATOR STL Follow Up ----- Pat. Name: ROSAURA BRADLEY Study Date: 06/07/2020 1:32pm Pat. NO: [id number] Referring ??: LAZARO MAGUIRE MD Site: [place] Methods Engineer: Ca rFey : 1995 Age: 24 ----- INDICATION ----- Growth Restriction (IUGR) Insufficient Care CODING ----- Diagnosis ? O36.5930: Maternal care for other known or suspected poor growth Unspecified Fetus ?O09.33: Supervision of with insufficient care ?Z3A.35: Weeks Gestation of Procedures ?18498: OB follow-up/Target per fetus ?32502: Umbilical Artery Doppler HISTORY ----- OB History ? 1. Para 0 MATERNAL ASSESSMENT ----- Physical Exam ? Weight 64 kg. BMI 25.61 kg/m?. METHOD ----- Transabdominal ultrasound examination ----- [place]ard . Number of fetuses: 1. DATING ----- Cycle: regular cycle GA by stated dating 35 w + 1 d NICOLE by stated dating : 07/11/2020 Ultrasound examination on: 06/07/2020 GA by U/S based upon: AC, BPD, EFW, Femur, HC GA by U/S 32 w + 1 d NICOLE by U/S: 08/01/2020 Method of dating: Restore dating from previous exam Assigned: Dating performed on 03/28/2020, based on the external assessment Assigned GA 35 w + 1 d Assigned NICOLE: 07/11/2020 BIOMETRY ----- Main Biometry: BPD ? 78.6 ? mm ? 31w 4d ?<1% ? Hadlock HC ?286.4 ?mm ? 31w 3d ?<1% ? Hadlock AC ?299.8 ?mm ? 34w 0d ?23% ? Hadlock Femur ? 60.5 ? mm ? 31w 3d ?<1% ? Hadlock HC / AC ? 0.96 ?13% ? Nicolaides Weight Calculation: EFW ? 2,043 ?g ?32w 3d ?5% ?Hadlock EFW (lb,oz) ? 4 lb 8 ? oz EFW by ? Hadlock ([id number]-CX-[id number]-FL) Extremities / Bony Struc Biometry: FL / BPD ?0.77 ? FL / AC ? 0.20 ? Other Structures Biometry: AF MVP ?5.4 ?cm ? RAVEN ? 13.2 ? cm ? 42% ? Hastings FHR ? 144 ?bpm ? GENERAL EVALUATION ----- Cardiac activity present. FHR 144 bpm. movements present. Presentation cephalic. Placenta Placental site: anterior. Umbilical cord Cord vessels: 3 vessel cord. Amniotic fluid Amount of AF: normal amount. MVP 5.4 cm. RAVEN 13.2 cm. Q1 5.4 cm, Q2 5.3 cm, Q3 2.5 cm, Q4 0.0 cm. DOPPLER ----- Umbilical Artery: normal. PI ?0.92 ?66% ? Twyla RI ?0.61 ?64% ? Twyla PS ?46.20 ?cm/s ? 36% ? Ebbing ED ?18.10 ?cm/s ? S / D ? 2.55 ?56% ? Twyla ANATOMY ----- The following structures appear normal: Head / Neck ? Cranium. Heart / Thorax ?4-chamber view. ?Diaphragm. Abdomen ? Stomach. Kidneys. Bladder. COMMENT ----- Patient's name and date of were verified by the quality coordinator prior to the exam Procedure Note Vandana Stark MD - 06/08/2020 STL Follow Up ----- Name:Marissa BRADLEY Date:06/07/2020 1:32pm Pat. NO: [id number] MD:LAZARO MAGUIRE MD [facility]1995Age:24 ----- INDICATION ----- Growth Restriction (IUGR) Insufficient Care CODING ----- Diagnosis O36.5930: Maternal care for other known orsuspected poor growth Unspecified Fetus O09.33: Supervision of with insufficientantenatal care Z3A.35: Weeks Gestation of Procedures 03698: OB follow-up/Target per fetus 83227: Umbilical Artery Doppler HISTORY ----- OB History 1. Para 0 MATERNAL ASSESSMENT ----- Physical Exam Weight 64 kg. BMI 25.61 kg/m?. METHOD ----- Transabdominal ultrasound examination ----- [place] . Number of fetuses: 1. DATING ----- Cycle:regular cycle GA by stated dating 35 w + 1 d NICOLE by stated dating :07/11/2020 Ultrasound examination on:06/07/2020 GA by U/S based upon:AC, BPD, EFW, Femur, HC GA by U/S32 w + 1 d NICOLE by U/S:08/01/2020 Method of dating:Restore dating from previous exam Assigned:Dating performed on 03/28/2020, based on the externalassessment Assigned GA35 w + 1 d Assigned NICOLE:07/11/2020 BIOMETRY ----- Main Biometry: BPD 78.6 mm 31w 4d<1% Hadlock HC 286.4 mm 31w 3d<1% Hadlock AC 299.8 mm 34w 0d23% Hadlock Femur 60.5 mm 31w 3d<1% Hadlock HC / AC 0.9613% Nicolaides Weight Calculation: EFW 2,043 g 32w 3d 5%Hadlock EFW (lb,oz) 4 lb 8 oz EFW by Hadlock (TZB-[id number]-FL) Extremities / Bony Struc Biometry: FL / BPD 0.77 FL / AC 0.20 Other Structures Biometry: AF MVP 5.4 cm RAVEN 13.2 cm42% Hastings FHR 144 bpm GENERAL EVALUATION ----- Cardiac activity present. FHR 144 bpm. movements present. Presentation cephalic. Placenta Placental site: anterior. Umbilical cord Cord vessels: 3 vessel cord. Amniotic fluid Amount of AF: normal amount. MVP 5.4 cm. RAVEN 13.2 cm. Q15.4 cm, Q2 5.3 cm, Q3 2.5 cm, Q4 0.0 cm. DOPPLER ----- Umbilical Artery: normal. PI 0.9266% Twyla RI 0.6164% Twyla PS 46.20 cm/s36% Ebbing ED 18.10 cm/s S / D 2.5556% Twyla ANATOMY ----- The following structures appear normal: Head / Neck Cranium. Heart / Thorax 4-chamber view. Diaphragm. Abdomen Stomach. Kidneys. Bladder. COMMENT ----- Patient's name and date of were verified by the quality coordinator prior tothe exam IMPRESSION ----- 1. Single living fetus with a gestational age of 35 w 1 d, based on thereported clinical dates. 2. Current growth parameters are consistent with the stated EDC. The fetalsize is small for gestational age at the 5th percentile. There has been adequate growth and AC is at the 23rd. 3. Unremarkable limited anatomy noted. A detailed anatomycannot be performed secondary to advanced gestational age. However, there are no gross structural abnormalities noted. 4. The amniotic fluid is normal for gestational age. 5. Umbilical artery Dopplers are normal. Recommendations: - Repeat growth surveillance in 3 week if undelivered. - Twice weekly testing with one weekly UA Dopplers Thank you for allowing us to participate in the care of this patient. Lazaro Maguire MD US ORDERABLES documented in this encounter Visit Diagnoses Diagnosis Zlpyu-btf-ipshp fetus, third trimester documented in this encounter
--- OUTSIDE RECORDS SUMMARY | 2024-07-26 02:28 | XMS_ITS | Encounter Summary ---
Author Organization [facility] Address [address] [facility] Attn: Epic Prelude ADT SARAH LONGORIA [address] Care Team Providers Care Wood Caulker Name Role Phone Unavailable Primary Care Provider Unavailabl e Encounter Details Date Type Department Care Team (Latest Contact Info) Description 05/17/2020 Travel Social History Tobacco Use Types Packs/Day [...] have Coronavirus / COVID-19? No / Unsure 05/17/2020 7:25 AM CDT documented as of this encounter Plan of Treatment Not on file documented as of this encounter Visit Diagnoses Not on filedocumented in this encounter
--- OUTSIDE RECORDS SUMMARY | 2024-07-26 02:28 | XMS_ITS | Encounter Summary ---
Author Organization [facility] Address [address] [place] [address] Care Team Providers Care [employer]fuels Plant Construction Worker Name Role Phone Unavailable Primary Care Provider Unavailabl e Reason for Visit * Radiology Services (Routine) - Closed Specialty Diagnoses / Procedures Referred By Contac t Referred To Contact Diagnoses Encounter for screening for malformation Procedures US OB 14+ WKS SINGLE GEST US OB DETAIL SINGLE GEST bonita MV ko Lazaro Maguire MD [address] [address] Referral ID Status Reason Start Date Expiration Date V isits Requested Visits Authorized [id number] Closed STL CTS 03/13/2020 04/13/2021 1 1 Encounter Details Date Type Department Care Team (Latest Contact Info) Description 03/28/2020 9:58 AM CDT - 03/28/2020 11:59 PM CDT Hospital Encounter [facility] [address] [place] [address] Lazaro Maguire MD [address] [address] Discharge Disposition: Home or Self [...] have Coronavirus / COVID-19? No / Unsure 03/28/2020 11:19 AM CDT documented as of this encounter Plan of Treatment Not on file documented as of this encounter Procedures Procedure Name Priority Date/Time Associated Diagnosis Comments US OB 14+ WKS SINGLE GEST Routine 03/28/2020 11:15 AM CDT Encounter for screening for malformation documented in this encounter Results * US OB 14+ WKS SINGLE GEST (03/28/2020 11:15 AM CDT) Anatomical Region Laterality Modality Pelvis Ultrasound 03/28/2020 10:2 4 AM CDT Impressions 03/28/2020 11:32 AM CDT IMPRESSION ----- Viable at 25 weeks 0 days gestation. Patient reports her NICOLE is established by an outside ultrasound performed at 20 weeks gestation The biometry is consistent with the established gestational age Low normal growth profile with estimated weight at 11th percentile and abdominal circumference at the 16th percentile No structural malformations were identified Amniotic fluid volume is normal Anterior placenta with normal placental cord insertion appreciated; the placenta does not appear to be low-lying Small simple cyst measuring less than 2 cm noted on right ovary Follow-up ultrasound was scheduled in 4 weeks to assess growth Narrative 03/28/2020 11:32 AM CDT STL Basic ----- Pat. Name: ROSAURA BRADLEY Study Date: 03/28/2020 10:24am Pat. NO: [id number] Referring ??MD: LAZARO MAGUIRE MD Site: [place] Production Officer: Ca Frey : 1995 Age: 24 ----- INDICATION ----- Encounter for anatomic survey Insufficient Care CODING ----- Diagnosis ? Z36: Encounter for screening of mother ?O09.32: Supervision of with insufficient care ?Z3A.25: Weeks Gestation of Procedures ?96711: OB greater than 14 wks (1st Basic) HISTORY ----- OB History ? 1. Para 0 MATERNAL ASSESSMENT ----- Physical Exam ? Weight 64 kg. BMI 25.61 kg/m?. METHOD ----- Transabdominal ultrasound examination ----- [place] . Number of fetuses: 1. DATING ----- Cycle: regular cycle Method of dating: based on the external assessment GA by stated dating 25 w + 0 d NICOLE by stated dating : 07/11/2020 Ultrasound examination on: 03/28/2020 GA by U/S based upon: AC, BPD, EFW, Femur, HC GA by U/S 24 w + 0 d NICOLE by U/S: 07/18/2020 Assigned: Dating performed on 03/28/2020, based on the external assessment Assigned GA 25 w + 0 d Assigned NICOLE: 07/11/2020 BIOMETRY ----- Main Biometry: BPD ? 58.0 ? mm ? 23w 5d ?8% ?Hadlock HC ?220.7 ?mm ? 24w 1d ?7% ?Hadlock Cerebellum tr ? 26.6 ? mm ? 25w 0d ?36% ? Leonard AC ?193.8 ?mm ? 24w 1d ?16% ? Hadlock Femur ? 43.0 ? mm ? 24w 0d ?13% ? Hadlock Humerus ? 39.2 ? mm ? 24w 0d ?12% ? Ham HC / AC ? 1.14 ?58% ? Nicolaides Weight Calculation: EFW ? 657 ?g ?23w 6d ?11% ? Hadlock EFW (lb,oz) ? 1 lb 7 ? oz EFW by ? Hadlock (RSW-IR-MS-FL) Head / Face / Neck Biometry: CM ?5.2 ?mm ? 22% ? Nicolaides Outer IOD ? 34.4 ? mm ? 22w 0d ?<1% ? Ham Extremities / Bony Struc Biometry: FL / BPD ?0.74 ? FL / AC ? 0.22 ? Tibia ? 36.1 ? mm ? 23w 4d ?10% ? Ham Other Structures Biometry: AF MVP ?4.6 ?cm ? RAVEN ? 17.9 ? cm ? 76% ? Hastings FHR ? 143 ?bpm ? GENERAL EVALUATION ----- Cardiac activity present. FHR 143 bpm. movements visualized. Presentation cephalic. Placenta Placental site: anterior. Umbilical cord Cord vessels: 3 vessel cord. Cord insertion: placental insertion: normal. Amniotic fluid Amount of AF: normal amount. MVP 4.6 cm. RAVEN 17.9 cm. Q1 4.5 cm, Q2 4.3 cm, Q3 4.5 cm, Q4 4.6 cm. ANATOMY ----- The following structures appear normal: Head / Neck ? Cranium. Lateral ventricles. Choroid plexus. Midline falx. Cavum septi pellucidi. Cerebellum. Cisterna ?magna. Face ?Lips. Profile. Nose. Palate. Orbits. Heart / Thorax ?4-chamber view. RVOT view. LVOT view. Situs. Aortic arch view. Ductal arch view. Superior vena cava. ?Inferior vena cava. High short axis view. 3- vessel view. 6-fkueao-jqtdqyn view. Cardiac rhythm. ?Diaphragm. Abdomen ? Abdominal wall. Stomach. Kidneys. Bladder. Spine ? Cervical spine. Thoracic spine. Lumbar spine. Sacral spine. Extremities / ? Right hand. Left hand. Right foot. Left foot. Skeleton Gender: female. MATERNAL STRUCTURES ----- Cervix ?Visualized ?Approach - Transabdominal Right Ovary ? Normal ?Size 32 mm x 32 mm x 17 mm. Mean 2.7 cm. Vol 9.5 cm? Left Ovary ?Normal COMMENT ----- Patient's name and date of were confirmed by the soap drier tender prior to the exam Procedure Note Viktor Carlson MD - 03/28/2020 STL Basic ----- Pat. Name:Marissa BRADLEY Date:03/28/2020 10:24am Pat. NO: [id number] MD:LAZARO MAGUIRE MD Site:[facility]:Ca Frey :1995Age:24 ----- INDICATION ----- Encounter for anatomic survey Insufficient Care CODING ----- Diagnosis Z36: Encounter for screening of mother O09.32: Supervision of with insufficientantenatal care Z3A.25: Weeks Gestation of Procedures 84410: OB greater than 14 wks (1st Basic) HISTORY ----- OB History 1. Para 0 MATERNAL ASSESSMENT ----- Physical Exam Weight 64 kg. BMI 25.61 kg/m?. METHOD ----- Transabdominal ultrasound examination ----- [place]ard . Number of fetuses: 1. DATING ----- Cycle:regular cycle Method of dating:based on the external assessment GA by stated dating 25 w + 0 d NICOLE by stated dating :07/11/2020 Ultrasound examination on:03/28/2020 GA by U/S based upon:AC, BPD, EFW, Femur, HC GA by U/S24 w + 0 d NICOLE by U/S:07/18/2020 Assigned:Dating performed on 03/28/2020, based on the externalassessment Assigned GA25 w + 0 d Assigned NICOLE:07/11/2020 BIOMETRY ----- Main Biometry: BPD 58.0 mm 23w 5d 8%Hadlock HC 220.7 mm 24w 1d 7%Hadlock Cerebellum tr 26.6 mm 25w 0d36% Leonard AC 193.8 mm 24w 1d16% Hadlock Femur 43.0 mm 24w 0d13% Hadlock Humerus 39.2 mm 24w 0d12% Ham HC / AC 1.1458% Nicocarson Weight Calculation: EFW 657 g 23w 6d11% Hadlock EFW (lb,oz) 1 lb 7 oz EFW by Hadlock (NSO-ED-CF-FL) Head / Face / Neck Biometry: CM 5.2 mm22% Nicoyusufides Outer IOD 34.4 mm 22w 0d<1% Ham Extremities / Bony Struc Biometry: FL / BPD 0.74 FL / AC 0.22 Tibia 36.1 mm 23w 4d10% Ham Other Structures Biometry: AF MVP 4.6 cm RAVEN 17.9 cm76% Hastings FHR 143 bpm GENERAL EVALUATION ----- Cardiac activity present. FHR 143 bpm. movements visualized. Presentation cephalic. Placenta Placental site: anterior. Umbilical cord Cord vessels: 3 vessel cord. Cord insertion: placentalinsertion: normal. Amniotic fluid Amount of AF: normal amount. MVP 4.6 cm. RAVEN 17.9 cm. Q14.5 cm, Q2 4.3 cm, Q3 4.5 cm, Q4 4.6 cm. ANATOMY ----- The following structures appear normal: Head / Neck Cranium. Lateral ventricles. Choroid plexus.Midline falx. Cavum septi pellucidi. Cerebellum. Cisterna magna. Face Lips. Profile. Nose. Palate. Orbits. Heart / Thorax 4-chamber view. RVOT view. LVOT view. Situs.Aortic arch view. Ductal arch view. Superior vena cava. Inferior vena cava. High short axis view. 3-vesselview. 1-qqfexh-gktqmqn view. Cardiac rhythm. Diaphragm. Abdomen Abdominal wall. Stomach. Kidneys. Bladder. Spine Cervical spine. Thoracic spine. Lumbar spine.Sacral spine. Extremities / Right hand. Left hand. Right foot. Left foot. Skeleton Gender: female. MATERNAL STRUCTURES ----- Cervix Visualized Approach - Transabdominal Right Ovary Normal Size 32 mm x 32 mm x 17 mm. Mean 2.7 cm. Vol 9.5cm? Left Ovary Normal COMMENT ----- Patient's name and date of were confirmed by the soap drier tender priorto the exam IMPRESSION ----- Viable at 25 weeks 0 days gestation. Patient reports her NICOLE isestablished by an outside ultrasound performed at 20 weeks gestation The biometry is consistent with the established gestational age Low normal growth profile with estimated weight at 11thpercentile and abdominal circumference at the 16th percentile No structural malformations were identified Amniotic fluid volume is normal Anterior placenta with normal placental cord insertion appreciated; theplacenta does not appear to be low-lying Small simple cyst measuring less than 2 cm noted on right ovary Follow-up ultrasound was scheduled in 4 weeks to assess growth Lazaro Maguire MD US ORDERABLES documented in this encounter Visit Diagnoses Diagnosis Encounter for screening for malformation documented in this encounter
--- OUTSIDE RECORDS SUMMARY | 2024-07-26 02:28 | XMS_ITS | Encounter Summary ---
Author Organization [facility] Address [address] [place] [address] Care Team Providers Care Sheet Heater Helper Name Role Phone Unavailable Primary Care Provider Unavailabl e Reason for Visit * Radiology Services (Routine) - Closed Specialty Diagnoses / Procedures Referred By Deandre t Referred To Contact Diagnoses Uterine size date discrepancy , second trimester Procedures US OB FOLLOW UP + UMB ART US OB FOLLOW UP PER FETUS CHG US, UTERUS,F/U,TRANSABD JACKSON CHG DOPPLER UMBILICAL ARTERY Silvio Maguire MD [address] [address] Referral ID Status Reason Start Date Expiration Date V isits Requested Visits Authorized [id number] Closed [facility] CTS 05/10/2020 08/10/2020 1 1 Encounter Details Date Type Department Care Team (Latest Contact Info) Description 05/17/2020 7:26 AM CDT - 05/17/2020 11:59 PM CDT Hospital Encounter [facility] and [facility] [address] [place] [address] Silvio Maguire MD [address] [address] Discharge Disposition: Home or Self [...] OB FOLLOW UP + UMB ART Routine 05/17/2020 7:56 AM CDT Uterine size date discrepancy , second trimester documented in this encounter Results * US OB FOLLOW UP + UMB ART (05/17/2020 7:56 AM CDT) Anatomical Region Laterality Modality Pelvis Ultrasound 05/17/2020 7:29 AM CDT Impressions 05/17/2020 9:19 AM CDT IMPRESSION ----- Here today for interval growth ultrasound secondary to size date discrepancy (size less than dates) and lower limits of AGA on the last ultrasound. No complaints reported good movements. She also reports that she had NIPT which was reported as low risk. The biometry is showing interval growth however the estimated weight is the 8th percentile with the AC the 24th percentile which is suspect for SGA; all other measurements are lagging as in previous studies but the measurements are still within the gestational age range. This could be secondary to head size and shape and there is no evidence of skeletal or bony abnormalities. This is most likely a constitutionally small fetus but cannot rule out growth restriction based on 1 set of measurements. The mother is of small stature. The amniotic fluid volume is normal and there were good movements noted. The umbilical artery Doppler studies show normal S/D ratio. Normal-appearing anterior placenta. The above was discussed with Shameka Kirk via telephone; she understood all questions were answered and she was reassured. Narrative 05/17/2020 9:19 AM CDT STL Follow Up ----- Pat. Name: ROSAURA BRADLEY Study Date: 05/17/2020 7:29am Pat. NO: [id number] Referring ??MD: SILVIO MAGUIRE MD Site: [place] [employer]ockey: Ca Frey : 1995 Age: 24 ----- INDICATION ----- Insufficient Care Suspected Size-Dates Discrepancy CODING ----- Diagnosis ? O09.33: Supervision of with insufficient care ?O26.843: Uterine size-date discrepancy ?Z3A.32: Weeks Gestation of Procedures ?26573: OB follow-up/Target per fetus ?50423: Umbilical Artery Doppler HISTORY ----- OB History ? 1. Para 0 MATERNAL ASSESSMENT ----- Physical Exam ? Weight 64 kg. BMI 25.61 kg/m?. METHOD ----- Transabdominal ultrasound examination ----- [place] . Number of fetuses: 1. DATING ----- Cycle: regular cycle GA by stated dating 32 w + 1 d NICOLE by stated dating : 07/11/2020 Ultrasound examination on: 05/17/2020 GA by U/S based upon: AC, BPD, EFW, Femur, HC GA by U/S 30 w + 3 d NICOLE by U/S: 07/23/2020 Method of dating: Restore dating from previous exam Assigned: Dating performed on 03/28/2020, based on the external assessment Assigned GA 32 w + 1 d Assigned NICOLE: 07/11/2020 BIOMETRY ----- Main Biometry: BPD ? 75.6 ? mm ? 30w 2d ?4% ?Hadlock HC ?277.9 ?mm ? 30w 3d ?<1% ? Hadlock AC ?272.1 ?mm ? 31w 2d ?24% ? Hadlock Femur ? 56.4 ? mm ? 29w 4d ?1% ?Hadlock HC / AC ? 1.02 ?27% ? Nicolaides Weight Calculation: EFW ? 1,606 ?g ?30w 2d ?8% ?Hadlock EFW (lb,oz) ? 3 lb 9 ? oz EFW by ? Hadlock ([id number]) Extremities / Bony Struc Biometry: FL / BPD ?0.75 ? FL / AC ? 0.21 ? Other Structures Biometry: AF MVP ?5.7 ?cm ? RAVEN ? 17.5 ? cm ? 70% ? Hastings FHR ? 133 ?bpm ? GENERAL EVALUATION ----- Cardiac activity present. FHR 133 bpm. movements present. Presentation cephalic. Placenta Placental site: anterior. no previa. Umbilical cord Cord vessels: 3 vessel cord. Amniotic fluid Amount of AF: normal amount. MVP 5.7 cm. RAVEN 17.5 cm. Q1 2.9 cm, Q2 3.4 cm, Q3 5.7 cm, Q4 5.5 cm. DOPPLER ----- Umbilical Artery: PI ?1.00 ?69% ? Twyla RI ?0.67 ?76% ? Twyla PS ?53.40 ?cm/s ? 75% ? Ebbing ED ?17.50 ?cm/s ? S / D ? 3.05 ?70% ? Twyla ANATOMY ----- The following structures appear normal: Head / Neck ? Cranium. Heart / Thorax ?Cardiac rhythm. ?Diaphragm. Abdomen ? Stomach. Kidneys. Bladder. Gender: female. COMMENT ----- Patient's name and date of were verified by the hosiery knitter prior to the exam FOLLOW-UP ----- Due to suspected SGA/IUGR will initiate twice-weekly testing along with weekly Doppler studies and repeat interval growth in 3 weeks based on the subsequent findings and interval growth will also determine timing of delivery and further management. labor precautions along with kick counts. Thank you for allowing us to partake in your patient's care. Procedure Note Darryl Avilez DO - 05/17/2020 STL Follow Up ----- Janis. Name:HUY BRADLEYGali Date:05/17/2020 7:29am Pat. NO: [id number] MD:SILVIO MAGUIRE MD [facility]:Ca Frey :1995Age:24 ----- INDICATION ----- Insufficient Care Suspected Size-Dates Discrepancy CODING ----- Diagnosis O09.33: Supervision of with insufficientantenatal care O26.843: Uterine size-date discrepancy Z3A.32: Weeks Gestation of Procedures 06905: OB follow-up/Target per fetus 41380: Umbilical Artery Doppler HISTORY ----- OB History 1. Para 0 MATERNAL ASSESSMENT ----- Physical Exam Weight 64 kg. BMI 25.61 kg/m?. METHOD ----- Transabdominal ultrasound examination ----- [place] . Number of fetuses: 1. DATING ----- Cycle:regular cycle GA by stated dating 32 w + 1 d NICOLE by stated dating :07/11/2020 Ultrasound examination on:05/17/2020 GA by U/S based upon:AC, BPD, EFW, Femur, HC GA by U/S30 w + 3 d NICOLE by U/S:07/23/2020 Method of dating:Restore dating from previous exam Assigned:Dating performed on 03/28/2020, based on the externalassessment Assigned GA32 w + 1 d Assigned NICOLE:07/11/2020 BIOMETRY ----- Main Biometry: BPD 75.6 mm 30w 2d 4%Hadlock HC 277.9 mm 30w 3d<1% Hadlock AC 272.1 mm 31w 2d24% Hadlock Femur 56.4 mm 29w 4d 1%Hadlock HC / AC 1.0227% Nicolaides Weight Calculation: EFW 1,606 g 30w 2d 8%Hadlock EFW (lb,oz) 3 lb 9 oz EFW by Hadlock ([id number]-FL) Extremities / Bony Struc Biometry: FL / BPD 0.75 FL / AC 0.21 Other Structures Biometry: AF MVP 5.7 cm RAVEN 17.5 cm70% Hastings FHR 133 bpm GENERAL EVALUATION ----- Cardiac activity present. FHR 133 bpm. movements present. Presentation cephalic. Placenta Placental site: anterior. no previa. Umbilical cord Cord vessels: 3 vessel cord. Amniotic fluid Amount of AF: normal amount. MVP 5.7 cm. RAVEN 17.5 cm. Q12.9 cm, Q2 3.4 cm, Q3 5.7 cm, Q4 5.5 cm. DOPPLER ----- Umbilical Artery: PI 1.0069% Twyla RI 0.6776% Twyla PS 53.40 cm/s75% Ebbing ED 17.50 cm/s S / D 3.0570% Twyla ANATOMY ----- The following structures appear normal: Head / Neck Cranium. Heart / Thorax Cardiac rhythm. Diaphragm. Abdomen Stomach. Kidneys. Bladder. Gender: female. COMMENT ----- Patient's name and date of were verified by the hosiery knitter prior tothe exam FOLLOW-UP ----- Due to suspected SGA/IUGR will initiate twice-weekly fetaltesting along with weekly Doppler studies and repeat interval growth in 3 weeks based on the subsequent findings andinterval growth will also determine timing of delivery and further management. labor precautions along with kick counts. Thank you for allowing us to partake in your patient's care. IMPRESSION ----- Here today for interval growth ultrasound secondary to size datediscrepancy (size less than dates) and lower limits of AGA on the last ultrasound. No complaints reported good movements. Cherie reports that she had NIPT which was reported as low risk. The biometry is showing interval growth however the estimated weightis the 8th percentile with the AC the 24th percentile which is suspect for SGA; all other measurements are lagging as inprevious studies but the measurements are still within the gestational age range. This could be secondary to head size and shape andthere is no evidence of skeletal or bony abnormalities. This is most likely a constitutionally small fetus but cannot rule outgrowth restriction based on 1 set of measurements. The mother is of small stature. The amniotic fluid volume is normal and there were good movementsnoted. The umbilical artery Doppler studies show normal S/D ratio. Normal-appearing anterior placenta. The above was discussed with Ms. Bradley via telephone; she understood allquestions were answered and she was reassured. Silvio Maguire MD ORDERABLES documented in this encounter Visit Diagnoses Diagnosis Uterine size date discrepancy , second trimester documented in this encounter
--- OUTSIDE RECORDS SUMMARY | 2024-07-26 02:28 | XMS_ITS | Encounter Summary ---
Author Organization [facility] Address [address] [facility] Attn: Epic Prelude ADT SARAH [place] [address] Care Team Providers Care Production Supervisor Name Role Phone Unavailable Primary Care Provider Unavailabl e Encounter Details Date Type Department Care Team (Latest Contact Info) Description 03/15/2020 Travel Social History Tobacco Use Types Packs/Day [...] have Coronavirus / COVID-19? No / Unsure 03/15/2020 8:15 AM CDT documented as of this encounter Plan of Treatment Not on file documented as of this encounter Visit Diagnoses Not on filedocumented in this encounter
--- OUTSIDE RECORDS SUMMARY | 2024-07-26 02:28 | XMS_ITS | Encounter Summary ---
Author Organization [facility] Address [address] [facility] Attn: Epic Prelude ADT JANI EVANS SARAH [address] Care Team Providers Care Cold Press Operator Name Role Phone Unavailable Primary Care Provider Unavailabl e Encounter Details Date Type Department Care Team (Latest Contact Info) Description 03/28/2020 Travel Social History Tobacco Use Types Packs/Day [...]
--- OUTSIDE RECORDS SUMMARY | 2024-07-26 02:28 | XMS_ITS | Encounter Summary ---
Author Organization [facility] Address [address] [facility] Attn: Epic Prelude ADT JANI EVANS SARAH [address] Care Team Providers Care [employer] Principal Name Role Phone Unavailable Primary Care Provider Unavailabl e Encounter Details Date Type Department Care Team (Latest Contact Info) Description 04/23/2020 Travel Social History Tobacco Use Types Packs/Day [...] have Coronavirus / COVID-19? No / Unsure 04/23/2020 8:23 AM CDT documented as of this encounter Plan of Treatment Not on file documented as of this encounter Visit Diagnoses Not on filedocumented in this encounter
--- OUTSIDE RECORDS SUMMARY | 2024-07-26 02:28 | XMS_ITS | Encounter Summary ---
Author Organization [facility] Address [address] [place] [address] Care Team Providers Care Patient Resource Coordinator Name Role Phone Unavailable Primary Care Provider Unavailabl e Reason for Referral * Radiology Services (Routine) - Closed Specialty Diagnoses / Procedures Referred By Deandre sawyer Referred To Contact Diagnoses Encounter for ultrasound to check growth Procedures US OB FOLLOW UP PER FETUS Lazaro Maguier MD [address] [address] Referral ID Status Reason Start Date Expiration Date V isits Requested Visits Authorized [id number] Closed [facility] CTS 04/10/2020 07/10/2020 1 1 Reason for Visit * Radiology Services (Routine) - Closed Specialty Diagnoses / Procedures Referred By Deandre sawyer Referred To Contact Diagnoses Encounter for ultrasound to check growth Procedures US OB FOLLOW UP PER FETUS Lazaro Maguire MD [address] [address] Referral ID Status Reason Start Date Expiration Date V isits Requested Visits Authorized [id number] Closed STL CTS 04/10/2020 07/10/2020 1 1 Encounter Details Date Type Department Care Team (Latest Contact Info) Description 04/23/2020 8:24 AM CDT - 04/23/2020 11:59 PM CDT Hospital Encounter [facility] M[facility] and [facility] [address] [place] [address] Viktor Carlson MD [address] [address] Discharge Disposition: Home or Self Care Social [...] Associated Diagnosis Comments US OB FOLLOW UP PER FETUS Routine 04/23/2020 8:55 AM CDT Encounter for ultrasound to check growth documented in this encounter Results * US OB FOLLOW UP PER FETUS (04/23/2020 8:55 AM CDT) Anatomical Region Laterality Modality Pelvis Ultrasound 04/23/2020 8:29 AM CDT Impressions 04/23/2020 9:08 AM CDT IMPRESSION ----- 1. Single living fetus with a gestational age of 28w 5d, based on the reported clinical dates. 2. Current growth parameters are consistent with the stated EDC. The size is appropriate for gestational age at 11th percentile. 3. Unremarkable limited anatomy noted. A detailed anatomy cannot be performed secondary to advanced gestational age. However, there are no gross structural abnormalities noted. 4. The amniotic fluid is normal for gestational age. Comments: Long bones are measuring short for gestational age, although they appear morphologically normal. The patient is 5'2'' as well. No other findings suggestive of skeletal dysplasia at this time. Due to limited care and borderline EFW, follow up growth sonogram in 3 weeks is recommended. Recommendations: - Follow up growth sonogram in 3 weeks. Thank you for allowing us to participate in the care of this patient. Narrative 04/23/2020 9:08 AM CDT STL Follow Up ----- Name: ROSAURA BRADLEY Study Date: 04/23/2020 8:29am Pat. NO: [id number] Referring ??MD: LAZARO MAGUIRE MD Site: [place] [employer] Worker: Ca Frey : 1995 Age: 24 ----- INDICATION ----- Insufficient Care ? Late care Suspected Size-Dates Discrepancy CODING ----- Diagnosis ? O09.33: Supervision of with insufficient care ?O26.843: Uterine size-date discrepancy ?Z3A.28: Weeks Gestation of Procedures ?27527: OB follow-up/Target per fetus HISTORY ----- OB History ? 1. Para 0 MATERNAL ASSESSMENT ----- Physical Exam ? Weight 64 kg. BMI 25.61 kg/m?. METHOD ----- Transabdominal ultrasound examination ----- [facility]dard . Number of fetuses: 1. DATING ----- Cycle: regular cycle GA by stated dating 28 w + 5 d NICOLE by stated dating : 07/11/2020 Ultrasound examination on: 04/23/2020 GA by U/S based upon: AC, BPD, EFW, Femur, HC GA by U/S 27 w + 4 d NICOLE by U/S: 07/19/2020 Method of dating: Restore dating from previous exam Assigned: Dating performed on 03/28/2020, based on the external assessment Assigned GA 28 w + 5 d Assigned NICOLE: 07/11/2020 BIOMETRY ----- Main Biometry: BPD ? 67.9 ? mm ? 27w 2d ?6% ?Hadlock HC ?255.7 ?mm ? 27w 5d ?4% ?Hadlock AC ?241.0 ?mm ? 28w 3d ?33% ? Hadlock Femur ? 49.7 ? mm ? 26w 5d ?3% ?Hadlock Humerus ? 43.4 ? mm ? 25w 6d ?<1% ? Ahm HC / AC ? 1.06 ?31% ? Nicolaides Weight Calculation: EFW ? 1,115 ?g ?27w 3d ?11% ? Hadlock EFW (lb,oz) ? 2 lb 7 ? oz EFW by ? Hadlock ([id number]-FL) Extremities / Bony Struc Biometry: FL / BPD ?0.73 ? FL / AC ? 0.21 ? Tibia ? 44.5 ? mm ? 27w 3d ?11% ? Ham Other Structures Biometry: AF MVP ?4.7 ?cm ? RAVEN ? 16.9 ? cm ? 68% ? Hastings FHR ? 138 ?bpm ? GENERAL EVALUATION ----- Cardiac activity present. FHR 138 bpm. movements present. Presentation cephalic. Placenta Placental site: anterior. Umbilical cord Cord vessels: 3 vessel cord. Cord insertion: placental insertion: normal. Amniotic fluid Amount of AF: normal amount. MVP 4.7 cm. RAVEN 16.9 cm. Q1 3.8 cm, Q2 4.5 cm, Q3 3.9 cm, Q4 4.7 cm. ANATOMY ----- The following structures appear normal: Head / Neck ? Cranium. Midline falx. Cavum septi pellucidi. Face ?Lips. Nose. Heart / Thorax ?4-chamber view. ?Diaphragm. Abdomen ? Stomach. Kidneys. Bladder. Gender: female. COMMENT ----- Patient's name and date of were verified by the stave log cut off saw operator prior to the exam Procedure Note Rock Mcmillan MD - 04/23/2020 STL Follow Up ----- Name:Marissa BRADLEY Date:04/23/2020 8:29am Pat. NO: [id number] :LAZARO MAGUIRE MD [facility] :1995Age:24 ----- INDICATION ----- Insufficient Care Late care Suspected Size-Dates Discrepancy CODING ----- Diagnosis O09.33: Supervision of with insufficientantenatal care O26.843: Uterine size-date discrepancy Z3A.28: Weeks Gestation of Procedures 91518: OB follow-up/Target per fetus HISTORY ----- OB History 1. Para 0 MATERNAL ASSESSMENT ----- Physical Exam Weight 64 kg. BMI 25.61 kg/m?. METHOD ----- Transabdominal ultrasound examination ----- [place] . Number of fetuses: 1. DATING ----- Cycle:regular cycle GA by stated dating 28 w + 5 d NICOLE by stated dating :07/11/2020 Ultrasound examination on:04/23/2020 GA by U/S based upon:AC, BPD, EFW, Femur, HC GA by U/S27 w + 4 d NICOLE by U/S:07/19/2020 Method of dating:Restore dating from previous exam Assigned:Dating performed on 03/28/2020, based on the externalassessment Assigned GA28 w + 5 d Assigned NICOLE:07/11/2020 BIOMETRY ----- Main Biometry: BPD 67.9 mm 27w 2d 6%Hadlock HC 255.7 mm 27w 5d 4%Hadlock AC 241.0 mm 28w 3d33% Hadlock Femur 49.7 mm 26w 5d 3%Hadlock Humerus 43.4 mm 25w 6d<1% Ham HC / AC 1.0631% Nicocarson Weight Calculation: EFW 1,115 g 27w 3d11% Hadlock EFW (lb,oz) 2 lb 7 oz EFW by Hadlock ([id number]-FL) Extremities / Bony Struc Biometry: FL / BPD 0.73 FL / AC 0.21 Tibia 44.5 mm 27w 3d11% Ham Other Structures Biometry: AF MVP 4.7 cm RAVEN 16.9 cm68% Hastings FHR 138 bpm GENERAL EVALUATION ----- Cardiac activity present. FHR 138 bpm. movements present. Presentation cephalic. Placenta Placental site: anterior. Umbilical cord Cord vessels: 3 vessel cord. Cord insertion: placentalinsertion: normal. Amniotic fluid Amount of AF: normal amount. MVP 4.7 cm. RAVEN 16.9 cm. Q13.8 cm, Q2 4.5 cm, Q3 3.9 cm, Q4 4.7 cm. ANATOMY ----- The following structures appear normal: Head / Neck Cranium. Midline falx. Cavum septi pellucidi. Face Lips. Nose. Heart / Thorax 4-chamber view. Diaphragm. Abdomen Stomach. Kidneys. Bladder. Gender: female. COMMENT ----- Patient's name and date of were verified by the stave log cut off saw operator prior tothe exam IMPRESSION ----- 1. Single living fetus with a gestational age of 28w 5d, based on thereported clinical dates. 2. Current growth parameters are consistent with the stated EDC. The fetalsize is appropriate for gestational age at 11th percentile. 3. Unremarkable limited anatomy noted. A detailed anatomycannot be performed secondary to advanced gestational age. However, there are no gross structural abnormalities noted. 4. The amniotic fluid is normal for gestational age. Comments: Long bones are measuring short for gestational age, althoughthey appear morphologically normal. The patient is 5'2'' as well. No other findings suggestive of skeletal dysplasia at this time.Due to limited care and borderline EFW, follow up growth sonogram in 3 weeks is recommended. Recommendations: - Follow up growth sonogram in 3 weeks. Thank you for allowing us to participate in the care of this patient. Viktor Carlson MD US ORDERABLES documented in this encounter Visit Diagnoses Diagnosis Encounter for ultrasound to check growth documented in this encounter
== END 2024-07-19 02:13 | disposition left against medical advice (07) ==
PROVIDERS: PCP Internal Medicine
DX: Z53.21 Procedure and treatment not carried out due to patient leaving prior to being seen by health care provider (principal)
CPT/HCPCS: 99199